=== PATIENT | female | born 1925 | race Caucasian/White ===

== ENCOUNTER 2016-08-17 10:18 | Inpatient (IN) | payer MEDICARE ==
[~2016-08-17] VITALS: Ht 165.1 cm; Wt 64.0 kg
[2016-08-17] MEDS ORDERED: IV NORMAL SALINE 1000ML BAG 1,000 ML IV ONE (10:45)
[2016-08-17 11:04] LABS: BASO % 0 % (0-3); EOS % 0 % (0-3); HEMATOCRIT 45.1 % (36.0-47.0); HEMOGLOBIN 15.3 g/dL (12.0-15.5); LYMPH # 1.1 x10^3/uL (1.0-4.8); LYMPH % 11 % (24-48); MEAN CORPUSCULAR HEMOGLOBIN 30 pg (25-35); MEAN CORPUSCULAR HGB CONC 34 g/dL (31-37); MEAN CORPUSCULAR VOLUME 88 fL (79-100); MONO % 9 % (0-9); NEUT % 80 % (31-73); PLATELET COUNT 373 x10^3/uL (140-400); RED BLOOD COUNT 5.15 x10^6/uL (3.50-5.40); RED CELL DISTRIBUTION WIDTH 13.4 % (11.5-14.5); WHITE BLOOD COUNT 10.8 x10^3/uL (4.0-11.0)
[2016-08-17 11:08] LABS: BILIRUBIN,URINE SMALL (NEG); GLUCOSE,URINE NEGATIVE (NEG); NITRITE,URINE NEGATIVE (NEG); PH,URINE 6.5; PROTEIN,URINE 30 mg/dL (NEG-TRACE)
[2016-08-17] MEDS ORDERED: CHOL500016 PO (11:09)
[2016-08-17] MEDS ORDERED: LEVO100T5 PO (11:09)
[2016-08-17] MEDS ORDERED: SIMV40TA3 PO (11:09)
[2016-08-17] MEDS ORDERED: ASPI-482 PO (11:09)
[2016-08-17] MEDS ORDERED: METO25TA4 PO (11:09)
--- NOTE | 2016-08-17 11:12 | RAD ---
Indication generalized weakness. Protocol study. A single view of the chest was obtained and is compared to an examination March 28, 2011. There are background changes compatible with emphysema and/or fibrosis. Heart size is normal. There is no gross congestive heart failure. There are occasional calcified granulomas. Vascular stent is noted in the upper mediastinum. An acute finding in the chest is not seen. IMPRESSION: No acute finding in the chest
[2016-08-17 11:19] LABS: INR 1.1 (0.8-1.1); PROTHROMBIN TIME PATIENT 13.1 SEC (11.7-14.0)
[2016-08-17 11:24] LABS: CALCIUM 10.2 mg/dL (8.5-10.1); GFR 52.3; POTASSIUM 4.4 mmol/L (3.5-5.1)
--- NOTE | 2016-08-17 11:27 | RAD ---
Indication weakness. Noncontrast images of the head were obtained. Comparison is made to an examination 10/18/2011. The calvarium appears unremarkable. The visualized paranasal sinuses appear unremarkable. There is no subdural or epidural hematoma. There is some underlying atrophy compatible with the patient's age. There is no mass or midline shift. No hemorrhage is seen. A significant change compared to the previous exam is not seen. IMPRESSION: No acute intracranial finding PQRS Compliance Statement: One or more of the following individualized dose reduction techniques were utilized for this examination: 1. Automated exposure control 2. Adjustment of the mA and/or kV according to patient size 3. Use of iterative reconstruction technique
[2016-08-17 11:30] LABS: BACTERIA,URINE 0 /HPF (0-FEW); RBC,URINE OCC /HPF (0-2); SQUAMOUS EPITHELIAL CELL,UR FEW /LPF
[2016-08-17 11:30] LABS: ALBUMIN 3.6 g/dL (3.4-5.0); ALBUMIN/GLOBULIN RATIO 0.9 (1.0-1.7); MAGNESIUM 2.1 mg/dL (1.8-2.4); TOTAL BILIRUBIN 0.8 mg/dL (0.2-1.0); TOTAL PROTEIN 7.7 g/dL (6.4-8.2)
[2016-08-17 11:32] LABS: BARBITURATES NEG (NEG); BENZODIAZEPINES NEG (NEG); CANNABINOIDS NEG (NEG); COCAINE NEG (NEG); METHADONE NEG (NEG); OPIATES NEG (NEG); PHENCYCLIDINE NEG (NEG)
--- NOTE | 2016-08-17 11:36 | EKG ---
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
[2016-08-17 11:38] LABS: CKMB MASS 9.4 ng/mL (0.0-3.6)
[2016-08-17] MEDS ORDERED: IOHEXOL 300 MG/ML 75 ML VIAL IV ONE (13:15)
--- NOTE | 2016-08-17 14:49 | RAD ---
CT pulmonary angiogram with contrast History: Elevated d-dimer, weakness. Comparison: None. Technique: Helical CT angiogram of the chest with attention to the pulmonary arteries was performed after the administration of intravenous contrast, 60 mL Omnipaque 300. Axial 2-D reconstructions were obtained. Coronal 3-D MIPS were also obtained. One or more of the following individualized dose reduction techniques were utilized for the study: Automated exposure control Adjustment of mA and/or kV according to patient's size Use of iterative reconstruction technique. Findings: Pulmonary arteries are adequately opacified. There is motion artifact. There is no evidence of proximal segmental or larger pulmonary embolism. Focus of atelectasis is seen in the right lower lobe. Old granulomatous disease of the chest is noted. No pneumothorax or pleural effusion is seen. Trachea and mainstem bronchi appear patent. Aortic atherosclerosis is noted. Coronary artery calcification are seen. No pericardial thickening is identified. No cardiac chamber enlargement is seen. Images of the upper abdomen demonstrate 1.5 cm low-density lesion involving the left hepatic lobe, may be cyst. Impression: 1. No proximal segmental or larger pulmonary embolism identified. 2. No acute abnormality identified in the chest.
[2016-08-17] MEDS ORDERED: ONDANSETRON PF 4 MG/2 ML VIAL. IV PRN ×2 (15:15→16:39)
--- NOTE | 2016-08-17 16:30 | PHYS DOC ---
Past Medical History Past Medical History: High Cholesterol, Hypothyroid Past Surgical History: Other Additional Past Surgical Histo: back surgery, stent placed in carotid Alcohol Use: None Drug Use: None Adult General Chief Complaint Chief Complaint: WEAKNESS/GENERALIZED HPI HPI Patient is a 89 year old female with history of hypothyroidism and high cholesterol who presents today with increased weakness. Patient is in the ED by herself. Per nursing inflammation patient was signed by the family who stay with her. They state patient was found on the floor sitting down this morning. This states she appeared increasingly confused. This states she appeared weaker than normal. Patient is alert and oriented to self only. Family is not present. Review of Systems Review of Systems Constitutional: Generalized weakness Eyes: Denies change in visual acuity, redness, or eye pain [] HENT: Denies nasal congestion or sore throat [] Respiratory: Denies cough or shortness of breath [] Cardiovascular: No additional information not addressed in HPI [] GI: Denies abdominal pain, nausea, vomiting, bloody stools or diarrhea [] : Denies dysuria or hematuria [] Musculoskeletal: Denies back pain or joint pain [] Integument: Denies rash or skin lesions [] Neurologic: Increase confusion Endocrine: Denies polyuria or polydipsia [] Current Medications Current Medications Current Medications Medications (Trade) Dose Ordered Sig/Gaurang Start Time Stop Time Status Last Admin Dose Admin Iohexol (Omnipaque 300 Mg/ml) 60 ml 1X ONCE 08/17/16 13:15 08/17/16 13:16 DC 08/17/16 14:31 60 ML Sodium Chloride 1,000 ml @ 1,000 mls/hr 1X ONCE 08/17/16 10:45 08/17/16 11:44 DC 08/17/16 11:17 1,000 MLS/HR Allergies Allergies Physical Exam Physical Exam Constitutional: Well developed, well nourished, no acute distress, non-toxic appearance. [] HENT: Normocephalic, atraumatic, bilateral external ears normal, oropharynx moist, no oral exudates, nose normal. [] Eyes: PERRLA, EOMI, conjunctiva normal, no discharge. [] Neck: Normal range of motion, no tenderness, supple, no stridor. [] Cardiovascular:Heart rate regular rhythm, no murmur [] Lungs & Thorax: Bilateral breath sounds clear to auscultation [] Abdomen: Bowel sounds normal, soft, no tenderness, no masses, no pulsatile masses. [] Skin: Warm, dry, no erythema, no rash. [] Back: No tenderness, no CVA tenderness. [] Extremities: No tenderness, no cyanosis, no clubbing, ROM intact, no edema. [] Neurologic: Alert and oriented X 1, normal motor function, normal sensory function, no focal deficits noted. [] Psychologic: Affect normal, judgement normal, mood normal. [] Current Patient Data Vital Signs Vital Signs Date Time Temp Pulse Resp B/P (MAP) Pulse Ox O2 Delivery O2 Flow Rate FiO2 08/17/16 13:36 101 20 158/84 (108) 93 Room Air 08/17/16 10:25 99.1 99.1 Lab Values Laboratory Tests Test 08/17/16 10:30 08/17/16 10:40 Urine Collection Type U cath Urine Color Yellow Urine Clarity Clear Urine pH 6.5 Urine Specific [place] 1.020 Urine Protein 30 mg/dL (NEG-TRACE) Urine Glucose (UA) Negative mg/dL (NEG) Urine Ketones (Stick) 15 mg/dL (NEG) Urine Blood Negative (NEG) Urine Nitrite Negative (NEG) Urine Bilirubin Small (NEG) Urine Urobilinogen Dipstick 1.0 mg/dL (0.2 mg/dL) Urine Leukocyte Esterase Negative (NEG) Urine RBC Occ /HPF (0-2) Urine WBC 1-4 /HPF (0-4) Urine Squamous Epithelial Cells Few /LPF Urine Bacteria 0 /HPF (0-FEW) Urine Hyaline Casts Few /HPF Urine Mucus Mod /LPF Urine Opiates Screen Neg (NEG) Urine Methadone Screen Neg (NEG) Urine Barbiturates Neg (NEG) Urine Phencyclidine Screen Neg (NEG) Urine Amphetamine/Methamphetamine Neg (NEG) Urine Benzodiazepines Screen Neg (NEG) Urine Cocaine Screen Neg (NEG) Urine Cannabinoids Screen Neg (NEG) Urine Ethyl Alcohol Neg (NEG) White Blood Count 10.8 x10^3/uL (4.0-11.0) Red Blood Count 5.15 x10^6/uL (3.50-5.40) Hemoglobin 15.3 g/dL (12.0-15.5) Hematocrit 45.1 % (36.0-47.0) Mean Corpuscular Volume 88 fL (79-100) Mean Corpuscular Hemoglobin 30 pg (25-35) Mean Corpuscular Hemoglobin Concent 34 g/dL (31-37) Red Cell Distribution Width 13.4 % (11.5-14.5) Platelet Count 373 x10^3/uL (140-400) Neutrophils (%) (Auto) 80 % (31-73) H Lymphocytes (%) (Auto) 11 % (24-48) L Monocytes (%) (Auto) 9 % (0-9) Eosinophils (%) (Auto) 0 % (0-3) Basophils (%) (Auto) 0 % (0-3) Neutrophils # (Auto) 8.6 x10^3uL (1.8-7.7) H Lymphocytes # (Auto) 1.1 x10^3/uL (1.0-4.8) Monocytes # (Auto) 1.0 x10^3/uL (0.0-1.1) Eosinophils # (Auto) 0.0 x10^3/uL (0.0-0.7) Basophils # (Auto) 0.0 x10^3/uL (0.0-0.2) Prothrombin Time 13.1 SEC (11.7-14.0) Prothrombin Time INR 1.1 (0.8-1.1) D-Dimer (Christal) 2.14 ug/mlFEU (0.00-0.50) H Sodium Level 141 mmol/L (136-145) Potassium Level 4.4 mmol/L (3.5-5.1) Chloride Level 105 mmol/L (98-107) Carbon Dioxide Level 31 mmol/L (21-32) Anion Gap 5 (6-14) L Blood Urea Nitrogen 17 mg/dL (7-20) Creatinine 1.0 mg/dL (0.6-1.0) Estimated GFR (Cockcroft-Gault) 52.3 BUN/Creatinine Ratio 17 (6-20) Glucose Level 112 mg/dL (70-99) H Lactic Acid Level 2.1 mmol/L (0.4-2.0) H Calcium Level 10.2 mg/dL (8.5-10.1) H Magnesium Level 2.1 mg/dL (1.8-2.4) Total Bilirubin 0.8 mg/dL (0.2-1.0) Aspartate Amino Transferase (AST) 35 U/L (15-37) Alanine Aminotransferase (ALT) 21 U/L (14-59) Alkaline Phosphatase 123 U/L (46-116) H Creatine Kinase 651 U/L (26-192) H Creatine Kinase MB (Mass) 9.4 ng/mL (0.0-3.6) H Creatine Kinase MB Relative Index 1.4 % (0-4) Troponin I Quantitative 0.023 ng/mL (0.000-0.055) ZH-Mag-C-Type Natriuretic Peptide 1210 pg/mL (0-449) H Total Protein 7.7 g/dL (6.4-8.2) Albumin 3.6 g/dL (3.4-5.0) Albumin/Globulin Ratio 0.9 (1.0-1.7) L Thyroid Stimulating Hormone (TSH) 0.858 uIU/mL (0.358-3.74) Laboratory Tests 08/17/16 10:40 Laboratory Tests 08/17/16 10:40 EKG EKG [] Radiology/Procedures Radiology/Procedures [] Course & Med Decision Making Course & Med Decision Making Pertinent Labs and Imaging studies reviewed. (See chart for details) This is a 89-year-old female patient who presents to the ED with increased weakness and increased confusion. She is in the ED by herself. Family is not present. Per nursing information patient was sent to the ED by the family who stated she was found on the floor sitting down. They state she appeared more confused than normal as well as weaker than normal. Patient is alert and oriented to self. She actually states she sat herself on the floor for unknown reason. CBC with no acute findings, CMP with calcium of 10.2, lactic 2.1, d-dimer was 2.14. Urine analysis was negative for infection. Chest x-ray, CT of the head, CTA chest was negative for any acute findings. Spoke with Dr. Cosme was accepted patient for admission. Dragon Disclaimer Dragon Disclaimer This electronic medical record was generated, in whole or in part, using a voice recognition dictation system. Departure Departure Impression: Primary Impression: Generalized weakness Additional Impression: Confusion Disposition: ADMITTED INPATIENT Admitting Physician: Abigail Kelly Condition: STABLE Referrals: APRIL NIELSEN Jr, MD (PCP) Problem Qualifiers STEFANIE GONZALEZ [employer]ER August 17, 2016 16:30
[2016-08-17] MEDS ORDERED: IV 1/2 NORMAL SALINE 1,000 ML IV ONE (16:45)
[2016-08-17] MEDS ORDERED: LABETALOL 20 MG/4 ML DISP.SYRIN. IVP PRN (16:45)
--- NOTE | 2016-08-17 16:52 | PDOC1 ---
History and Physical Date of Admission Date of Admission DATE: 08/17/16 TIME: 16:43 Identification/Chief Complaint Chief Complaint more confused than usual Problems: Source Source: Caregiver, Chart review, Patient History of Present Illness History of Present Illness 89 y.o female who lives with son at home, has assistive devices at home but does not use them (bec she doesnt want to), she holds on to church, furniture etc to get by, brought by concerned son and dtr bec of more confusion than baseline, She otherwise usually can feed herself (they chop food for her). NOw seems more wake but she thinks her dtr was someone else (unusual for pt), not oriented to yr or place (unusual to pt), Imaging CT head CXR neg, blood work unimpressive except for mild hypercalcemia 10.2, lactate 2.3, BNP 1200, TSH normal, WBC 1o, Hgb 15. Family knows likely this is dementia, asks for a "test to dx dementia" heavy education done and they are realistic and understand. 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 Past Medical History Cardiovascular: HTN, Hyperlipidemia Endocrine: Hypothyroidism Past Surgical History Past Surgical History: No pertinent history Family History Family History: No Significant, Hypertension Social History Smoke: No ALCOHOL: none Drugs: None Current Problem List Problem List Problems Medical Problems: (1) Generalized weakness Status: Acute Problems: Current Medications Current Medications Current Medications Sodium Chloride 1,000 ml @ 1,000 mls/hr 1X ONCE IV Last administered on t 11:17; Start 08/17/16 at 10:45; Stop 08/17/16 at 11:44; Status DC Iohexol (Omnipaque 300 Mg/ml) 60 ml 1X ONCE IV Last administered on 08/17/16t 14:31; Start 08/17/16 at 13:15; Stop 08/17/16 at 13:16; Status DC Ondansetron HCl (Zofran) 4 mg PRN Q8HRS PRN IV NAUSEA/VOMITING; Start 08/17/16 at 15:15; Stop 08/17/16 at 16:41; Status DC Ondansetron HCl (Zofran) 4 mg PRN Q6HRS PRN IV NAUSEA/VOMITING; Start 08/17/16 at 16:39; Stop 08/18/16 at 16:38; Status UNV Sodium Chloride 1,000 ml @ 75 mls/hr 1X ONCE IV ; Start 08/17/16 at 16:45; Stop 08/18/16 at 06:04; Status UNV Labetalol HCl (Normodyne) 10 mg PRN Q2HR PRN IVP HYPERTENSION, SEE COMMENTS; Start 08/17/16 at 16:45; Status UNV Aspirin (Ecotrin) 81 mg DAILY PO ; Start 08/18/16 at 09:00; Status UNV Levothyroxine Sodium (Synthroid) 100 mcg DAILY PO ; Start 08/18/16 at 09:00; Status UNV Metoprolol Tartrate (Lopressor) 25 mg BID PO ; Start 08/17/16 at 21:00; Status UNV Simvastatin (Zocor) 40 mg QHS PO ; Start 08/17/16 at 21:00; Status UNV Non-Formulary Medication 1 tab DAILY PO ; Start 08/18/16 at 09:00; Status UNV Active Scripts Active Reported Vitamin D3 (Cholecalciferol (Vitamin D3)) 5,000 Unit Tablet 1 Tab PO DAILY Aspir 81 (Aspirin) 81 Mg Tablet.dr 1 Tab PO DAILY Levothyroxine Sodium 100 Mcg Tablet 1 Tab PO DAILY Metoprolol Tartrate 25 Mg Tablet 1 Tab PO BID Simvastatin 40 Mg Tablet 1 Tab PO QHS Allergies Allergies: Coded Allergies: egg (Verified Allergy, Intermediate, Nausea and Vomiting, 08/17/16) ROS Review of System unable to determine- has dementia Physical Exam General: No acute distress, Other (smiles, orieted only to self) HEENT: Atraumatic, PERRLA, EOMI Lungs: Clear to auscultation, Normal air movement Heart: S1S2, RRR, no thrills, no rubs, no gallops Cardiovascular: S2 Breasts: Normal Abdomen: Normal bowel sounds, Soft, No tenderness, No hepatosplenomegaly, No masses Rectal Exam: not examined PELVIC: Nml ext genitalia Extremities: No clubbing, No cyanosis, No edema, Normal pulses, No tenderness/ swelling Skin: No rashes, No breakdown, No significant lesion, Other (senile skin turgor ) Vitals Vitals Vital Signs Date Time Temp Pulse Resp B/P (MAP) Pulse Ox O2 Delivery O2 Flow Rate FiO2 08/17/16 15:43 Room Air 08/17/16 14:37 107 20 159/82 (107) 94 08/17/16 10:25 99.1 99.1 Labs Labs Laboratory Tests Test 08/17/16 10:30 08/17/16 10:40 Urine Collection Type U cath Urine Color Yellow Urine Clarity Clear Urine pH 6.5 Urine Specific [place] 1.020 Urine Protein 30 mg/dL (NEG-TRACE) Urine Glucose (UA) Negative mg/dL (NEG) Urine Ketones (Stick) 15 mg/dL (NEG) Urine Blood Negative (NEG) Urine Nitrite Negative (NEG) Urine Bilirubin Small (NEG) Urine Urobilinogen Dipstick 1.0 mg/dL (0.2 mg/dL) Urine Leukocyte Esterase Negative (NEG) Urine RBC Occ /HPF (0-2) Urine WBC 1-4 /HPF (0-4) Urine Squamous Epithelial Cells Few /LPF Urine Bacteria 0 /HPF (0-FEW) Urine Hyaline Casts Few /HPF Urine Mucus Mod /LPF Urine Opiates Screen Neg (NEG) Urine Methadone Screen Neg (NEG) Urine Barbiturates Neg (NEG) Urine Phencyclidine Screen Neg (NEG) Urine Amphetamine/Methamphetamine Neg (NEG) Urine Benzodiazepines Screen Neg (NEG) Urine Cocaine Screen Neg (NEG) Urine Cannabinoids Screen Neg (NEG) Urine Ethyl Alcohol Neg (NEG) White Blood Count 10.8 x10^3/uL (4.0-11.0) Red Blood Count 5.15 x10^6/uL (3.50-5.40) Hemoglobin 15.3 g/dL (12.0-15.5) Hematocrit 45.1 % (36.0-47.0) Mean Corpuscular Volume 88 fL (79-100) Mean Corpuscular Hemoglobin 30 pg (25-35) Mean Corpuscular Hemoglobin Concent 34 g/dL (31-37) Red Cell Distribution Width 13.4 % (11.5-14.5) Platelet Count 373 x10^3/uL (140-400) Neutrophils (%) (Auto) 80 % (31-73) Lymphocytes (%) (Auto) 11 % (24-48) Monocytes (%) (Auto) 9 % (0-9) Eosinophils (%) (Auto) 0 % (0-3) Basophils (%) (Auto) 0 % (0-3) Neutrophils # (Auto) 8.6 x10^3uL (1.8-7.7) Lymphocytes # (Auto) 1.1 x10^3/uL (1.0-4.8) Monocytes # (Auto) 1.0 x10^3/uL (0.0-1.1) Eosinophils # (Auto) 0.0 x10^3/uL (0.0-0.7) Basophils # (Auto) 0.0 x10^3/uL (0.0-0.2) Prothrombin Time 13.1 SEC (11.7-14.0) Prothromb Time International Ratio 1.1 (0.8-1.1) D-Dimer (Christal) 2.14 ug/mlFEU (0.00-0.50) Sodium Level 141 mmol/L (136-145) Potassium Level 4.4 mmol/L (3.5-5.1) Chloride Level 105 mmol/L (98-107) Carbon Dioxide Level 31 mmol/L (21-32) Anion Gap 5 (6-14) Blood Urea Nitrogen 17 mg/dL (7-20) Creatinine 1.0 mg/dL (0.6-1.0) Estimated GFR (Cockcroft-Gault) 52.3 BUN/Creatinine Ratio 17 (6-20) Glucose Level 112 mg/dL (70-99) Lactic Acid Level 2.1 mmol/L (0.4-2.0) Calcium Level 10.2 mg/dL (8.5-10.1) Magnesium Level 2.1 mg/dL (1.8-2.4) Total Bilirubin 0.8 mg/dL (0.2-1.0) Aspartate Amino Transf (AST/SGOT) 35 U/L (15-37) Alanine Aminotransferase (ALT/SGPT) 21 U/L (14-59) Alkaline Phosphatase 123 U/L (46-116) Creatine Kinase 651 U/L (26-192) Creatine Kinase MB (Mass) 9.4 ng/mL (0.0-3.6) Creatine Kinase MB Relative Index 1.4 % (0-4) Troponin I Quantitative 0.023 ng/mL (0.000-0.055) BK-Agf-U-Type Natriuretic Peptide 1210 pg/mL (0-449) Total Protein 7.7 g/dL (6.4-8.2) Albumin 3.6 g/dL (3.4-5.0) Albumin/Globulin Ratio 0.9 (1.0-1.7) Thyroid Stimulating Hormone (TSH) 0.858 uIU/mL (0.358-3.74) Laboratory Tests Test 08/17/16 10:30 08/17/16 10:40 Urine Collection Type U cath Urine Color Yellow Urine Clarity Clear Urine pH 6.5 Urine Specific [place] 1.020 Urine Protein 30 mg/dL (NEG-TRACE) Urine Glucose (UA) Negative mg/dL (NEG) Urine Ketones (Stick) 15 mg/dL (NEG) Urine Blood Negative (NEG) Urine Nitrite Negative (NEG) Urine Bilirubin Small (NEG) Urine Urobilinogen Dipstick 1.0 mg/dL (0.2 mg/dL) Urine Leukocyte Esterase Negative (NEG) Urine RBC Occ /HPF (0-2) Urine WBC 1-4 /HPF (0-4) Urine Squamous Epithelial Cells Few /LPF Urine Bacteria 0 /HPF (0-FEW) Urine Hyaline Casts Few /HPF Urine Mucus Mod /LPF Urine Opiates Screen Neg (NEG) Urine Methadone Screen Neg (NEG) Urine Barbiturates Neg (NEG) Urine Phencyclidine Screen Neg (NEG) Urine Amphetamine/Methamphetamine Neg (NEG) Urine Benzodiazepines Screen Neg (NEG) Urine Cocaine Screen Neg (NEG) Urine Cannabinoids Screen Neg (NEG) Urine Ethyl Alcohol Neg (NEG) White Blood Count 10.8 x10^3/uL (4.0-11.0) Red Blood Count 5.15 x10^6/uL (3.50-5.40) Hemoglobin 15.3 g/dL (12.0-15.5) Hematocrit 45.1 % (36.0-47.0) Mean Corpuscular Volume 88 fL (79-100) Mean Corpuscular Hemoglobin 30 pg (25-35) Mean Corpuscular Hemoglobin Concent 34 g/dL (31-37) Red Cell Distribution Width 13.4 % (11.5-14.5) Platelet Count 373 x10^3/uL (140-400) Neutrophils (%) (Auto) 80 % (31-73) Lymphocytes (%) (Auto) 11 % (24-48) Monocytes (%) (Auto) 9 % (0-9) Eosinophils (%) (Auto) 0 % (0-3) Basophils (%) (Auto) 0 % (0-3) Neutrophils # (Auto) 8.6 x10^3uL (1.8-7.7) Lymphocytes # (Auto) 1.1 x10^3/uL (1.0-4.8) Monocytes # (Auto) 1.0 x10^3/uL (0.0-1.1) Eosinophils # (Auto) 0.0 x10^3/uL (0.0-0.7) Basophils # (Auto) 0.0 x10^3/uL (0.0-0.2) Prothrombin Time 13.1 SEC (11.7-14.0) Prothromb Time International Ratio 1.1 (0.8-1.1) D-Dimer (Christal) 2.14 ug/mlFEU (0.00-0.50) Sodium Level 141 mmol/L (136-145) Potassium Level 4.4 mmol/L (3.5-5.1) Chloride Level 105 mmol/L (98-107) Carbon Dioxide Level 31 mmol/L (21-32) Anion Gap 5 (6-14) Blood Urea Nitrogen 17 mg/dL (7-20) Creatinine 1.0 mg/dL (0.6-1.0) Estimated GFR (Cockcroft-Gault) 52.3 BUN/Creatinine Ratio 17 (6-20) Glucose Level 112 mg/dL (70-99) Lactic Acid Level 2.1 mmol/L (0.4-2.0) Calcium Level 10.2 mg/dL (8.5-10.1) Magnesium Level 2.1 mg/dL (1.8-2.4) Total Bilirubin 0.8 mg/dL (0.2-1.0) Aspartate Amino Transf (AST/SGOT) 35 U/L (15-37) Alanine Aminotransferase (ALT/SGPT) 21 U/L (14-59) Alkaline Phosphatase 123 U/L (46-116) Creatine Kinase 651 U/L (26-192) Creatine Kinase MB (Mass) 9.4 ng/mL (0.0-3.6) Creatine Kinase MB Relative Index 1.4 % (0-4) Troponin I Quantitative 0.023 ng/mL (0.000-0.055) YD-Yxw-S-Type Natriuretic Peptide 1210 pg/mL (0-449) Total Protein 7.7 g/dL (6.4-8.2) Albumin 3.6 g/dL (3.4-5.0) Albumin/Globulin Ratio 0.9 (1.0-1.7) Thyroid Stimulating Hormone (TSH) 0.858 uIU/mL (0.358-3.74) VTE Prophylaxis Ordered VTE Prophylaxis Devices: Yes VTE Pharmacological Prophylaxi: Yes Assessment/Plan Assessment/Plan 1. Acute transient encephalopathy, likely sec to dementia undiagnosed 2. Hypothyroidism with TSH at goal 3. Dyslipidemia on statin 4. HTN, on BB controlled 5. MIld hypercalcemia s/p IVF bolus at ER 6. Elevated BNP 7. Dysphagia - on chopped diet at home 8. Elevated lactate PLAn: Admit REsume home meds except statin - i dont see the point controlling lipids in an 89 y.o (NO hx of stroke) PT/OT Dysphagia 3 diet [employer] [facility] - family wants snu Mild IVF in this elderly to help correct hypercalcemia (has been poor PO lately) HIgh fall risk DVT prophy with lovenox Rpt lactate carlin MAy chesk ESR, vit B12, dementia is a dx of exclusion MAy consult neuro to further educate sterling peterson re dementia SO far full code on chart, need to address with family Seen at ER ARNULFO POOLE MD August 17, 2016 16:51
[2016-08-17 17:45] VITALS: BP 145/99
[2016-08-17] MEDS: ENOXAPARIN 40 MG/0.4 ML SYRINGE. SQ SCH (18:16)
[2016-08-17 19:37] VITALS: BP 108/66
[2016-08-17] MEDS: METOPROLOL TART IMMED RELEASE 25 MG TABLET. PO SCH (21:00)
[2016-08-17] MEDS ORDERED: SIMVASTATIN 40 MG TABLET. PO SCH (21:00)
[2016-08-17 23:00] VITALS: BP 120/59
[2016-08-18 03:00] VITALS: BP 109/80
[2016-08-18 03:20] LABS: BASO % 1 % (0-3); EOS % 3 % (0-3); HEMATOCRIT 37.7 % (36.0-47.0); HEMOGLOBIN 12.6 g/dL (12.0-15.5); LYMPH # 1.3 x10^3/uL (1.0-4.8); LYMPH % 19 % (24-48); MEAN CORPUSCULAR HEMOGLOBIN 30 pg (25-35); MEAN CORPUSCULAR HGB CONC 33 g/dL (31-37); MEAN CORPUSCULAR VOLUME 89 fL (79-100); MONO % 9 % (0-9); NEUT % 68 % (31-73); PLATELET COUNT 268 x10^3/uL (140-400); RED BLOOD COUNT 4.22 x10^6/uL (3.50-5.40); RED CELL DISTRIBUTION WIDTH 13.4 % (11.5-14.5); WHITE BLOOD COUNT 6.5 x10^3/uL (4.0-11.0)
[2016-08-18 03:34] LABS: ALBUMIN 2.5 g/dL (3.4-5.0); ALBUMIN/GLOBULIN RATIO 0.9 (1.0-1.7); CALCIUM 8.6 mg/dL (8.5-10.1); CREATININE 0.8 mg/dL (0.6-1.0); GFR 67.7; POTASSIUM 3.9 mmol/L (3.5-5.1); TOTAL BILIRUBIN 0.5 mg/dL (0.2-1.0); TOTAL PROTEIN 5.2 g/dL (6.4-8.2)
[2016-08-18] MEDS: LEVOTHYROXINE 100 MCG TABLET PO SCH (06:12)
[2016-08-18 07:25] VITALS: BP 138/60
[2016-08-18] MEDS: METOPROLOL TART IMMED RELEASE 25 MG TABLET. PO SCH ×2 (09:05→20:59)
[2016-08-18] MEDS: ASPIRIN ENTERIC COATED 81 MG TABLET.DR. PO SCH (09:05)
[2016-08-18] MEDS: CHOLECALCIFEROL (VITAMIN D3) 5,000 UNIT CAPSULE PO SCH (09:05)
[2016-08-18 10:37] VITALS: BP 125/60
[2016-08-18] MEDS ORDERED: DOCUSATE SODIUM 100 MG CAPSULE. PO PRN (11:45)
[2016-08-18] MEDS ORDERED: ONDANSETRON PF 4 MG/2 ML VIAL. IV PRN (11:45)
[2016-08-18] MEDS ORDERED: ACETAMINOPHEN 325 MG TABLET. PO PRN (11:45)
[2016-08-18] MEDS ORDERED: hydrALAZINE 20 MG/ML VIAL. IVP PRN (11:45)
[2016-08-18] MEDS ORDERED: traMADol 50 MG TABLET PO PRN (11:45)
[2016-08-18] MEDS ORDERED: MORPHINE SULFATE 2 MG/ML DISP.SYRIN. IV PRN (11:45)
[2016-08-18] MEDS: CYANOCOBALAMIN (VITAMIN B-12) 1,000 MCG/ML VIAL IM SCH (12:22)
--- NOTE | 2016-08-18 12:54 | RAD ---
Indication swelling. Grayscale color Doppler and spectral imaging was performed. The examination was targeted to the major arteries of the lower extremities. On the right there is a biphasic waveform associated with the common femoral artery indicative of a component of inlet disease. A similar waveform is seen in the deep femoral. Biphasic to triphasic waveforms are seen throughout the course of the superficial femoral artery. This transitions to a monophasic waveform in the popliteal artery indicative of a component of disease at the SFA popliteal junction. The anterior tibial artery has a monophasic waveform. The posterior tibial artery also is monophasic. The peroneal artery is monophasic and the dorsal pedal artery is monophasic. On the left there is a biphasic waveform associated with the common femoral artery with a similar waveform in the deep femoral. Biphasic to triphasic waveforms are seen associated with the superficial femoral artery. Similar waveform is seen in the popliteal artery. The anterior tibial artery has a biphasic waveform. The posterior tibial artery has monophasic as is the peroneal. The dorsal pedal artery has a dampened monophasic waveform. 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 High-grade arterial stenosis on the right is not seen although there is an additional component of disease associated with the calf vessels. On the left there is likely some narrowing at the SFA popliteal junction with additional disease involving the calf vessels particularly the dorsal pedal artery
--- NOTE | 2016-08-18 13:02 | PDOC ---
PROGRESS NOTES Chief Complaint Chief Complaint 1. Acute transient encephalopathy, likely sec to dementia undiagnosed 2. Hypothyroidism with TSH at goal 3. Dyslipidemia on statin 4. HTN, on BB controlled 5. MIld hypercalcemia s/p IVF bolus at ER 6. Elevated BNP 7. Dysphagia - on chopped diet at home 8. Elevated lactate 9. vitb12 deficiency 10. mild malnutrition 11. urinary retention PLAn: fu with neuro, uro dysphagia 3 diet with swallow eval vitb12 IMX1 , po when dc PTOT SW for snf cont home meds keep esteban for now dvt ppx discussed with family History of Present Illness History of Present Illness obviously mild to moderate dementia, knows it is in hosp, but cannot tell me the name, year, month, day, home address pt denies dementia pt feels ok urinary retention overnight Vitals Vitals Vital Signs Date Time Temp Pulse Resp B/P (MAP) Pulse Ox O2 Delivery O2 Flow Rate FiO2 08/18/16 10:37 98.5 71 16 125/60 (81) 95 Room Air 98.5 08/17/16 20:00 93.0 Physical Exam Physical Exam aaox1-2, to person, place, not name of hosp General: Alert, Cooperative, No acute distress, Other (smiles, orieted only to self) Heart: Regular rate, Normal S1 Lungs: Clear Abdomen: Normal bowel sounds, Soft, No tenderness, No hepatosplenomegaly, No masses Extremities: No clubbing, No cyanosis, Normal pulses, No tenderness/swelling, Other (bl feet mild edema) Skin: No rashes, No breakdown, No significant lesion, Other (senile skin turgor ) Labs LABS Laboratory Tests Test 08/17/16 16:50 08/18/16 03:10 Lactic Acid Level 1.7 mmol/L (0.4-2.0) White Blood Count 6.5 x10^3/uL (4.0-11.0) Red Blood Count 4.22 x10^6/uL (3.50-5.40) Hemoglobin 12.6 g/dL (12.0-15.5) Hematocrit 37.7 % (36.0-47.0) Mean Corpuscular Volume 89 fL (79-100) Mean Corpuscular Hemoglobin 30 pg (25-35) Mean Corpuscular Hemoglobin Concent 33 g/dL (31-37) Red Cell Distribution Width 13.4 % (11.5-14.5) Platelet Count 268 x10^3/uL (140-400) Neutrophils (%) (Auto) 68 % (31-73) Lymphocytes (%) (Auto) 19 % (24-48) Monocytes (%) (Auto) 9 % (0-9) Eosinophils (%) (Auto) 3 % (0-3) Basophils (%) (Auto) 1 % (0-3) Neutrophils # (Auto) 4.5 x10^3uL (1.8-7.7) Lymphocytes # (Auto) 1.3 x10^3/uL (1.0-4.8) Monocytes # (Auto) 0.6 x10^3/uL (0.0-1.1) Eosinophils # (Auto) 0.2 x10^3/uL (0.0-0.7) Basophils # (Auto) 0.0 x10^3/uL (0.0-0.2) Erythrocyte Sedimentation Rate 8 (0-25) Sodium Level 145 mmol/L (136-145) Potassium Level 3.9 mmol/L (3.5-5.1) Chloride Level 108 mmol/L (98-107) Carbon Dioxide Level 27 mmol/L (21-32) Anion Gap 10 (6-14) Blood Urea Nitrogen 16 mg/dL (7-20) Creatinine 0.8 mg/dL (0.6-1.0) Estimated GFR (Cockcroft-Gault) 67.7 BUN/Creatinine Ratio 20 (6-20) Glucose Level 86 mg/dL (70-99) Calcium Level 8.6 mg/dL (8.5-10.1) Total Bilirubin 0.5 mg/dL (0.2-1.0) Aspartate Amino Transf (AST/SGOT) 29 U/L (15-37) Alanine Aminotransferase (ALT/SGPT) 17 U/L (14-59) Alkaline Phosphatase 93 U/L (46-116) Troponin I Quantitative 0.043 ng/mL (0.000-0.055) Total Protein 5.2 g/dL (6.4-8.2) Albumin 2.5 g/dL (3.4-5.0) Albumin/Globulin Ratio 0.9 (1.0-1.7) Vitamin B12 Level 195 pg/mL (247-911) Review of Systems Review of Systems no fever, chills, sob or chest pain Assessment and Plan Assessmemt and Plan Problems Medical Problems: (1) Confusion Status: Acute (2) Generalized weakness Status: Acute Problems: Comment Review of Relevant I have reviewed the following items isabella (where applicable) has been applied. Labs Laboratory Tests Test 08/17/16 10:30 08/17/16 10:40 08/17/16 16:50 08/18/16 03:10 Urine Collection Type U cath Urine Color Yellow Urine Clarity Clear Urine pH 6.5 Urine Specific [place] 1.020 Urine Protein 30 mg/dL (NEG-TRACE) Urine Glucose (UA) Negative mg/dL (NEG) Urine Ketones (Stick) 15 mg/dL (NEG) Urine Blood Negative (NEG) Urine Nitrite Negative (NEG) Urine Bilirubin Small (NEG) Urine Urobilinogen Dipstick 1.0 mg/dL (0.2 mg/dL) Urine Leukocyte Esterase Negative (NEG) Urine RBC Occ /HPF (0-2) Urine WBC 1-4 /HPF (0-4) Urine Squamous Epithelial Cells Few /LPF Urine Bacteria 0 /HPF (0-FEW) Urine Hyaline Casts Few /HPF Urine Mucus Mod /LPF Urine Opiates Screen Neg (NEG) Urine Methadone Screen Neg (NEG) Urine Barbiturates Neg (NEG) Urine Phencyclidine Screen Neg (NEG) Urine Amphetamine/Methamphetamine Neg (NEG) Urine Benzodiazepines Screen Neg (NEG) Urine Cocaine Screen Neg (NEG) Urine Cannabinoids Screen Neg (NEG) Urine Ethyl Alcohol Neg (NEG) White Blood Count 10.8 x10^3/uL (4.0-11.0) 6.5 x10^3/uL (4.0-11.0) Red Blood Count 5.15 x10^6/uL (3.50-5.40) 4.22 x10^6/uL (3.50-5.40) Hemoglobin 15.3 g/dL (12.0-15.5) 12.6 g/dL (12.0-15.5) Hematocrit 45.1 % (36.0-47.0) 37.7 % (36.0-47.0) Mean Corpuscular Volume 88 fL (79-100) 89 fL (79-100) Mean Corpuscular Hemoglobin 30 pg (25-35) 30 pg (25-35) Mean Corpuscular Hemoglobin Concent 34 g/dL (31-37) 33 g/dL (31-37) Red Cell Distribution Width 13.4 % (11.5-14.5) 13.4 % (11.5-14.5) Platelet Count 373 x10^3/uL (140-400) 268 x10^3/uL (140-400) Neutrophils (%) (Auto) 80 % (31-73) 68 % (31-73) Lymphocytes (%) (Auto) 11 % (24-48) 19 % (24-48) Monocytes (%) (Auto) 9 % (0-9) 9 % (0-9) Eosinophils (%) (Auto) 0 % (0-3) 3 % (0-3) Basophils (%) (Auto) 0 % (0-3) 1 % (0-3) Neutrophils # (Auto) 8.6 x10^3uL (1.8-7.7) 4.5 x10^3uL (1.8-7.7) Lymphocytes # (Auto) 1.1 x10^3/uL (1.0-4.8) 1.3 x10^3/uL (1.0-4.8) Monocytes # (Auto) 1.0 x10^3/uL (0.0-1.1) 0.6 x10^3/uL (0.0-1.1) Eosinophils # (Auto) 0.0 x10^3/uL (0.0-0.7) 0.2 x10^3/uL (0.0-0.7) Basophils # (Auto) 0.0 x10^3/uL (0.0-0.2) 0.0 x10^3/uL (0.0-0.2) Prothrombin Time 13.1 SEC (11.7-14.0) Prothromb Time International Ratio 1.1 (0.8-1.1) D-Dimer (Christal) 2.14 ug/mlFEU (0.00-0.50) Sodium Level 141 mmol/L (136-145) 145 mmol/L (136-145) Potassium Level 4.4 mmol/L (3.5-5.1) 3.9 mmol/L (3.5-5.1) Chloride Level 105 mmol/L (98-107) 108 mmol/L (98-107) Carbon Dioxide Level 31 mmol/L (21-32) 27 mmol/L (21-32) Anion Gap 5 (6-14) 10 (6-14) Blood Urea Nitrogen 17 mg/dL (7-20) 16 mg/dL (7-20) Creatinine 1.0 mg/dL (0.6-1.0) 0.8 mg/dL (0.6-1.0) Estimated GFR (Cockcroft-Gault) 52.3 67.7 BUN/Creatinine Ratio 17 (6-20) 20 (6-20) Glucose Level 112 mg/dL (70-99) 86 mg/dL (70-99) Lactic Acid Level 2.1 mmol/L (0.4-2.0) 1.7 mmol/L (0.4-2.0) Calcium Level 10.2 mg/dL (8.5-10.1) 8.6 mg/dL (8.5-10.1) Magnesium Level 2.1 mg/dL (1.8-2.4) Total Bilirubin 0.8 mg/dL (0.2-1.0) 0.5 mg/dL (0.2-1.0) Aspartate Amino Transf (AST/SGOT) 35 U/L (15-37) 29 U/L (15-37) Alanine Aminotransferase (ALT/SGPT) 21 U/L (14-59) 17 U/L (14-59) Alkaline Phosphatase 123 U/L (46-116) 93 U/L (46-116) Creatine Kinase 651 U/L (26-192) Creatine Kinase MB (Mass) 9.4 ng/mL (0.0-3.6) Creatine Kinase MB Relative Index 1.4 % (0-4) Troponin I Quantitative 0.023 ng/mL (0.000-0.055) 0.043 ng/mL (0.000-0.055) NY-Fcj-A-Type Natriuretic Peptide 1210 pg/mL (0-449) Total Protein 7.7 g/dL (6.4-8.2) 5.2 g/dL (6.4-8.2) Albumin 3.6 g/dL (3.4-5.0) 2.5 g/dL (3.4-5.0) Albumin/Globulin Ratio 0.9 (1.0-1.7) 0.9 (1.0-1.7) Thyroid Stimulating Hormone (TSH) 0.858 uIU/mL (0.358-3.74) Erythrocyte Sedimentation Rate 8 (0-25) Vitamin B12 Level 195 pg/mL (247-911) Laboratory Tests Test 08/17/16 16:50 08/18/16 03:10 Lactic Acid Level 1.7 mmol/L (0.4-2.0) White Blood Count 6.5 x10^3/uL (4.0-11.0) Red Blood Count 4.22 x10^6/uL (3.50-5.40) Hemoglobin 12.6 g/dL (12.0-15.5) Hematocrit 37.7 % (36.0-47.0) Mean Corpuscular Volume 89 fL (79-100) Mean Corpuscular Hemoglobin 30 pg (25-35) Mean Corpuscular Hemoglobin Concent 33 g/dL (31-37) Red Cell Distribution Width 13.4 % (11.5-14.5) Platelet Count 268 x10^3/uL (140-400) Neutrophils (%) (Auto) 68 % (31-73) Lymphocytes (%) (Auto) 19 % (24-48) Monocytes (%) (Auto) 9 % (0-9) Eosinophils (%) (Auto) 3 % (0-3) Basophils (%) (Auto) 1 % (0-3) Neutrophils # (Auto) 4.5 x10^3uL (1.8-7.7) Lymphocytes # (Auto) 1.3 x10^3/uL (1.0-4.8) Monocytes # (Auto) 0.6 x10^3/uL (0.0-1.1) Eosinophils # (Auto) 0.2 x10^3/uL (0.0-0.7) Basophils # (Auto) 0.0 x10^3/uL (0.0-0.2) Erythrocyte Sedimentation Rate 8 (0-25) Sodium Level 145 mmol/L (136-145) Potassium Level 3.9 mmol/L (3.5-5.1) Chloride Level 108 mmol/L (98-107) Carbon Dioxide Level 27 mmol/L (21-32) Anion Gap 10 (6-14) Blood Urea Nitrogen 16 mg/dL (7-20) Creatinine 0.8 mg/dL (0.6-1.0) Estimated GFR (Cockcroft-Gault) 67.7 BUN/Creatinine Ratio 20 (6-20) Glucose Level 86 mg/dL (70-99) Calcium Level 8.6 mg/dL (8.5-10.1) Total Bilirubin 0.5 mg/dL (0.2-1.0) Aspartate Amino Transf (AST/SGOT) 29 U/L (15-37) Alanine Aminotransferase (ALT/SGPT) 17 U/L (14-59) Alkaline Phosphatase 93 U/L (46-116) Troponin I Quantitative 0.043 ng/mL (0.000-0.055) Total Protein 5.2 g/dL (6.4-8.2) Albumin 2.5 g/dL (3.4-5.0) Albumin/Globulin Ratio 0.9 (1.0-1.7) Vitamin B12 Level 195 pg/mL (247-911) Medications Current Medications Sodium Chloride 1,000 ml @ 1,000 mls/hr 1X ONCE IV Last administered on 11:17; Start 08/17/16 at 10:45; Stop 08/17/16 at 11:44; Status DC Iohexol (Omnipaque 300 Mg/ml) 60 ml 1X ONCE IV Last administered on 08/17/16 14:31; Start 08/17/16 at 13:15; Stop 08/17/16 at 13:16; Status DC Ondansetron HCl (Zofran) 4 mg PRN Q8HRS PRN IV NAUSEA/VOMITING; Start 08/17/16 at 15:15; Stop 08/17/16 at 16:41; Status DC Ondansetron HCl (Zofran) 4 mg PRN Q6HRS PRN IV NAUSEA/VOMITING; Start 08/17/16 at 16:39; Stop 08/18/16 at 16:38 Sodium Chloride 1,000 ml @ 75 mls/hr 1X ONCE IV Last administered on 18:16; Start 08/17/16 at 16:45; Stop 08/18/16 at 06:04; Status DC Labetalol HCl (Normodyne) 10 mg PRN Q2HR PRN IVP HYPERTENSION, SEE COMMENTS; Start 08/17/16 at 16:45 Aspirin (Ecotrin) 81 mg DAILYWBKFT PO Last administered on 08/18/16 09:05; Start 08/18/16 at 08:00 Levothyroxine Sodium (Synthroid) 100 mcg DAILY07 PO Last administered on 06:12; Start 08/18/16 at 07:00 Metoprolol Tartrate (Lopressor) 25 mg BID PO Last administered on 08/18/16 09: 05; Start 08/17/16 at 21:00 Simvastatin (Zocor) 40 mg QHS PO ; Start 08/17/16 at 21:00; Stop 08/17/16 at 21: 00; Status DC Vitamin D (Vitamin D3) 5,000 unit DAILY PO Last administered on 08/18/16 09:05 ; Start 08/18/16 at 09:00 Enoxaparin Sodium (Lovenox 40mg Syringe) 40 mg Q24H SQ Last administered on 18:16; Start 08/17/16 at 18:00 Cyanocobalamin (Vitamin B-12) 1,000 mcg DAILY IM Last administered on 08/18/16 12:22; Start 08/18/16 at 10:30; Stop 08/20/16 at 09:01 Acetaminophen (Tylenol) 650 mg PRN Q6HRS PRN PO FEVER; Start 08/18/16 at 11:45 Ondansetron HCl (Zofran) 4 mg PRN Q6HRS PRN IV NAUSEA/VOMITING; Start 08/18/16 at 11:45 Morphine Sulfate 2 mg PRN Q2HR PRN IV PAIN; Start 08/18/16 at 11:45 Tramadol HCl (Ultram) 50 mg PRN Q6HRS PRN PO PAIN; Start 08/18/16 at 11:45 Hydralazine HCl (Apresoline) 10 mg PRN Q4HRS PRN IVP ELEVATED BP, SEE COMMENTS ; Start 08/18/16 at 11:45 Docusate Sodium (Colace) 100 mg PRN DAILY PRN PO CONSTIPATION; Start 08/18/16 at 11:45 Active Scripts Active Reported Vitamin D3 (Cholecalciferol (Vitamin D3)) 5,000 Unit Tablet 1 Tab PO DAILY Aspir 81 (Aspirin) 81 Mg Tablet.dr 1 Tab PO DAILY Levothyroxine Sodium 100 Mcg Tablet 1 Tab PO DAILY Metoprolol Tartrate 25 Mg Tablet 1 Tab PO BID Simvastatin 40 Mg Tablet 1 Tab PO QHS Vitals/I & O Vital Sign - Last 24 Hours 08/17/16 08/17/16 08/17/16 08/17/16 13:36 14:37 15:43 17:45 Temp 97.3 97.3 Pulse 101 107 119 Resp 20 20 18 B/P (MAP) 158/84 (108) 159/82 (107) 145/99 (114) Pulse Ox 93 94 96 O2 Delivery Room Air Room Air Room Air Room Air 08/17/16 08/17/16 08/17/16 08/18/16 19:37 20:00 23:00 03:00 Temp 98.2 97.5 97.8 98.2 97.5 97.8 Pulse 103 86 88 Resp 18 18 18 B/P (MAP) 108/66 (80) 120/59 (79) 109/80 (90) Pulse Ox 91 90 O2 Delivery Room Air Room Air Room Air Room Air O2 Flow Rate 93.0 93.0 08/18/16 08/18/16 08/18/16 08/18/16 07:25 07:37 09:05 10:37 Temp 98.5 98.5 98.5 98.5 Pulse 91 91 71 Resp 16 16 B/P (MAP) 138/60 (86) 138/60 125/60 (81) Pulse Ox 92 95 O2 Delivery Room Air Room Air Room Air Intake and Output 08/17/16 08/17/16 08/18/16 15:00 23:00 07:00 Intake Total 1000 ml 220 ml 240 ml Output Total 850 ml Balance 1000 ml 220 ml -610 ml NALLELY WARE MD Aug 18, 2016 13:02
[2016-08-18 14:46] VITALS: BP 133/72
--- NOTE | 2016-08-18 15:04 | PDOC2 ---
NEUROLOGY CONSULT Date of Admission Date of Admission DATE: 08/18/16 TIME: 14:59 Reason for Consult Reason for Consult: Altered mental status Referring Physician Referring Physician: Dr. Kelly PCP: Dr. Hurst Source Source: Caregiver, Chart review, Patient History of Present Illness History of Present Illness The patient is an 89-year-old right-handed female who has had altered mental status increasing over the last few days. However, she has been fairly fully dependent for care from her children for the last several months. They take care of cooking, cleaning, finances, the patient does not drive. Currently the patient is staying with her son but her daughter, with whom I also spoke, wants to take her to her house. There is no history of stroke, seizure, or head injury. The patient does not know why she is here and denies any complaints. Past Medical History Cardiovascular: HTN, Hyperlipidemia CENTRAL NERVOUS SYSTEM: Dementia Endocrine: Hypothyroidism Past Surgical History Past Surgical History: Other (right carotid stent) Family History Family History: CAD Social History Social History , lives with son, no tobacco or alcohol Current Medications Current Medications Current Medications Sodium Chloride 1,000 ml @ 1,000 mls/hr 1X ONCE IV Last administered on 11:17; Start 08/17/16 at 10:45; Stop 08/17/16 at 11:44; Status DC Iohexol (Omnipaque 300 Mg/ml) 60 ml 1X ONCE IV Last administered on 08/17/16 14:31; Start 08/17/16 at 13:15; Stop 08/17/16 at 13:16; Status DC Ondansetron HCl (Zofran) 4 mg PRN Q8HRS PRN IV NAUSEA/VOMITING; Start 08/17/16 at 15:15; Stop 08/17/16 at 16:41; Status DC Ondansetron HCl (Zofran) 4 mg PRN Q6HRS PRN IV NAUSEA/VOMITING; Start 08/17/16 at 16:39; Stop 08/18/16 at 16:38 Sodium Chloride 1,000 ml @ 75 mls/hr 1X ONCE IV Last administered on 18:16; Start 08/17/16 at 16:45; Stop 08/18/16 at 06:04; Status DC Labetalol HCl (Normodyne) 10 mg PRN Q2HR PRN IVP HYPERTENSION, SEE COMMENTS; Start 08/17/16 at 16:45 Aspirin (Ecotrin) 81 mg DAILYWBKFT PO Last administered on 08/18/16 09:05; Start 08/18/16 at 08:00 Levothyroxine Sodium (Synthroid) 100 mcg DAILY07 PO Last administered on 06:12; Start 08/18/16 at 07:00 Metoprolol Tartrate (Lopressor) 25 mg BID PO Last administered on 08/18/16 09: 05; Start 08/17/16 at 21:00 Simvastatin (Zocor) 40 mg QHS PO ; Start 08/17/16 at 21:00; Stop 08/17/16 at 21: 00; Status DC Vitamin D (Vitamin D3) 5,000 unit DAILY PO Last administered on 08/18/16 09:05 ; Start 08/18/16 at 09:00 Enoxaparin Sodium (Lovenox 40mg Syringe) 40 mg Q24H SQ Last administered on 18:16; Start 08/17/16 at 18:00 Cyanocobalamin (Vitamin B-12) 1,000 mcg DAILY IM Last administered on 08/18/16 12:22; Start 08/18/16 at 10:30; Stop 08/20/16 at 09:01 Acetaminophen (Tylenol) 650 mg PRN Q6HRS PRN PO FEVER; Start 08/18/16 at 11:45 Ondansetron HCl (Zofran) 4 mg PRN Q6HRS PRN IV NAUSEA/VOMITING; Start 08/18/16 at 11:45 Morphine Sulfate 2 mg PRN Q2HR PRN IV PAIN; Start 08/18/16 at 11:45 Tramadol HCl (Ultram) 50 mg PRN Q6HRS PRN PO PAIN; Start 08/18/16 at 11:45 Hydralazine HCl (Apresoline) 10 mg PRN Q4HRS PRN IVP ELEVATED BP, SEE COMMENTS ; Start 08/18/16 at 11:45 Docusate Sodium (Colace) 100 mg PRN DAILY PRN PO CONSTIPATION; Start 08/18/16 at 11:45 Active Scripts Active Reported Vitamin D3 (Cholecalciferol (Vitamin D3)) 5,000 Unit Tablet 1 Tab PO DAILY Aspir 81 (Aspirin) 81 Mg Tablet.dr 1 Tab PO DAILY Levothyroxine Sodium 100 Mcg Tablet 1 Tab PO DAILY Metoprolol Tartrate 25 Mg Tablet 1 Tab PO BID Simvastatin 40 Mg Tablet 1 Tab PO QHS Allergies Allergies: Coded Allergies: egg (Verified Allergy, Intermediate, Nausea and Vomiting, 08/17/16) ROS Review of System Patient denies fevers, chills, weight loss, dyspnea, angina, abdominal pain, change in bowels, or dysuria. 14 point review of systems is negative. Physical Exam Physical Examination PHYSICAL EXAMINATION: Vital signs: see above. General appearance is normal and in no acute distress. HEENT: Normocephalic and nontraumatic. Eyes, nose, ears, and throat are unremarkable. Neck is supple. No lymphadenopathy. No bruits are heard over the carotid artery. No crepitus. NEUROLOGICAL EXAMINATION: Mental Status Examination: Alert. Oriented only to person. Pupils are equal round and reactive to light and accommodation. Extraocular movements are intact. Visual field exam shows no defect on the direct confrontation. No motor or sensory deficits on the facial exam. Uvula in the midline and the soft palate elevated symmetrically. No deviation of the tongue to any direction. Gross hearing is normal. Shoulder shrug normal. Muscle tone is normal. Muscle strength is 4/5. Deep tendon reflexes are 2+ all around. Plantar reflex is with flexion response bilaterally. There are bilateral grasp reflexes. [id number]-[id number] test performance is accurate. Alternative movements are accurate. Gait not tested. Sensory exam shows no deficits. No cerebellar signs are elicited. Vitals VITALS Vital Signs Date Time Temp Pulse Resp B/P (MAP) Pulse Ox O2 Delivery O2 Flow Rate FiO2 08/18/16 10:37 98.5 71 16 125/60 (81) 95 Room Air 98.5 08/17/16 20:00 93.0 Labs Labs Laboratory Tests Test 08/17/16 10:30 08/17/16 10:40 08/17/16 16:50 08/18/16 03:10 Urine Collection Type U cath Urine Color Yellow Urine Clarity Clear Urine pH 6.5 Urine Specific [place] 1.020 Urine Protein 30 mg/dL (NEG-TRACE) Urine Glucose (UA) Negative mg/dL (NEG) Urine Ketones (Stick) 15 mg/dL (NEG) Urine Blood Negative (NEG) Urine Nitrite Negative (NEG) Urine Bilirubin Small (NEG) Urine Urobilinogen Dipstick 1.0 mg/dL (0.2 mg/dL) Urine Leukocyte Esterase Negative (NEG) Urine RBC Occ /HPF (0-2) Urine WBC 1-4 /HPF (0-4) Urine Squamous Epithelial Cells Few /LPF Urine Bacteria 0 /HPF (0-FEW) Urine Hyaline Casts Few /HPF Urine Mucus Mod /LPF Urine Opiates Screen Neg (NEG) Urine Methadone Screen Neg (NEG) Urine Barbiturates Neg (NEG) Urine Phencyclidine Screen Neg (NEG) Urine Amphetamine/Methamphetamine Neg (NEG) Urine Benzodiazepines Screen Neg (NEG) Urine Cocaine Screen Neg (NEG) Urine Cannabinoids Screen Neg (NEG) Urine Ethyl Alcohol Neg (NEG) White Blood Count 10.8 x10^3/uL (4.0-11.0) 6.5 x10^3/uL (4.0-11.0) Red Blood Count 5.15 x10^6/uL (3.50-5.40) 4.22 x10^6/uL (3.50-5.40) Hemoglobin 15.3 g/dL (12.0-15.5) 12.6 g/dL (12.0-15.5) Hematocrit 45.1 % (36.0-47.0) 37.7 % (36.0-47.0) Mean Corpuscular Volume 88 fL (79-100) 89 fL (79-100) Mean Corpuscular Hemoglobin 30 pg (25-35) 30 pg (25-35) Mean Corpuscular Hemoglobin Concent 34 g/dL (31-37) 33 g/dL (31-37) Red Cell Distribution Width 13.4 % (11.5-14.5) 13.4 % (11.5-14.5) Platelet Count 373 x10^3/uL (140-400) 268 x10^3/uL (140-400) Neutrophils (%) (Auto) 80 % (31-73) 68 % (31-73) Lymphocytes (%) (Auto) 11 % (24-48) 19 % (24-48) Monocytes (%) (Auto) 9 % (0-9) 9 % (0-9) Eosinophils (%) (Auto) 0 % (0-3) 3 % (0-3) Basophils (%) (Auto) 0 % (0-3) 1 % (0-3) Neutrophils # (Auto) 8.6 x10^3uL (1.8-7.7) 4.5 x10^3uL (1.8-7.7) Lymphocytes # (Auto) 1.1 x10^3/uL (1.0-4.8) 1.3 x10^3/uL (1.0-4.8) Monocytes # (Auto) 1.0 x10^3/uL (0.0-1.1) 0.6 x10^3/uL (0.0-1.1) Eosinophils # (Auto) 0.0 x10^3/uL (0.0-0.7) 0.2 x10^3/uL (0.0-0.7) Basophils # (Auto) 0.0 x10^3/uL (0.0-0.2) 0.0 x10^3/uL (0.0-0.2) Prothrombin Time 13.1 SEC (11.7-14.0) Prothromb Time International Ratio 1.1 (0.8-1.1) D-Dimer (Christal) 2.14 ug/mlFEU (0.00-0.50) Sodium Level 141 mmol/L (136-145) 145 mmol/L (136-145) Potassium Level 4.4 mmol/L (3.5-5.1) 3.9 mmol/L (3.5-5.1) Chloride Level 105 mmol/L (98-107) 108 mmol/L (98-107) Carbon Dioxide Level 31 mmol/L (21-32) 27 mmol/L (21-32) Anion Gap 5 (6-14) 10 (6-14) Blood Urea Nitrogen 17 mg/dL (7-20) 16 mg/dL (7-20) Creatinine 1.0 mg/dL (0.6-1.0) 0.8 mg/dL (0.6-1.0) Estimated GFR (Cockcroft-Gault) 52.3 67.7 BUN/Creatinine Ratio 17 (6-20) 20 (6-20) Glucose Level 112 mg/dL (70-99) 86 mg/dL (70-99) Lactic Acid Level 2.1 mmol/L (0.4-2.0) 1.7 mmol/L (0.4-2.0) Calcium Level 10.2 mg/dL (8.5-10.1) 8.6 mg/dL (8.5-10.1) Magnesium Level 2.1 mg/dL (1.8-2.4) Total Bilirubin 0.8 mg/dL (0.2-1.0) 0.5 mg/dL (0.2-1.0) Aspartate Amino Transf (AST/SGOT) 35 U/L (15-37) 29 U/L (15-37) Alanine Aminotransferase (ALT/SGPT) 21 U/L (14-59) 17 U/L (14-59) Alkaline Phosphatase 123 U/L (46-116) 93 U/L (46-116) Creatine Kinase 651 U/L (26-192) Creatine Kinase MB (Mass) 9.4 ng/mL (0.0-3.6) Creatine Kinase MB Relative Index 1.4 % (0-4) Troponin I Quantitative 0.023 ng/mL (0.000-0.055) 0.043 ng/mL (0.000-0.055) GB-Sgn-D-Type Natriuretic Peptide 1210 pg/mL (0-449) Total Protein 7.7 g/dL (6.4-8.2) 5.2 g/dL (6.4-8.2) Albumin 3.6 g/dL (3.4-5.0) 2.5 g/dL (3.4-5.0) Albumin/Globulin Ratio 0.9 (1.0-1.7) 0.9 (1.0-1.7) Thyroid Stimulating Hormone (TSH) 0.858 uIU/mL (0.358-3.74) Erythrocyte Sedimentation Rate 8 (0-25) Vitamin B12 Level 195 pg/mL (247-911) Laboratory Tests Test 08/17/16 16:50 08/18/16 03:10 Lactic Acid Level 1.7 mmol/L (0.4-2.0) White Blood Count 6.5 x10^3/uL (4.0-11.0) Red Blood Count 4.22 x10^6/uL (3.50-5.40) Hemoglobin 12.6 g/dL (12.0-15.5) Hematocrit 37.7 % (36.0-47.0) Mean Corpuscular Volume 89 fL (79-100) Mean Corpuscular Hemoglobin 30 pg (25-35) Mean Corpuscular Hemoglobin Concent 33 g/dL (31-37) Red Cell Distribution Width 13.4 % (11.5-14.5) Platelet Count 268 x10^3/uL (140-400) Neutrophils (%) (Auto) 68 % (31-73) Lymphocytes (%) (Auto) 19 % (24-48) Monocytes (%) (Auto) 9 % (0-9) Eosinophils (%) (Auto) 3 % (0-3) Basophils (%) (Auto) 1 % (0-3) Neutrophils # (Auto) 4.5 x10^3uL (1.8-7.7) Lymphocytes # (Auto) 1.3 x10^3/uL (1.0-4.8) Monocytes # (Auto) 0.6 x10^3/uL (0.0-1.1) Eosinophils # (Auto) 0.2 x10^3/uL (0.0-0.7) Basophils # (Auto) 0.0 x10^3/uL (0.0-0.2) Erythrocyte Sedimentation Rate 8 (0-25) Sodium Level 145 mmol/L (136-145) Potassium Level 3.9 mmol/L (3.5-5.1) Chloride Level 108 mmol/L (98-107) Carbon Dioxide Level 27 mmol/L (21-32) Anion Gap 10 (6-14) Blood Urea Nitrogen 16 mg/dL (7-20) Creatinine 0.8 mg/dL (0.6-1.0) Estimated GFR (Cockcroft-Gault) 67.7 BUN/Creatinine Ratio 20 (6-20) Glucose Level 86 mg/dL (70-99) Calcium Level 8.6 mg/dL (8.5-10.1) Total Bilirubin 0.5 mg/dL (0.2-1.0) Aspartate Amino Transf (AST/SGOT) 29 U/L (15-37) Alanine Aminotransferase (ALT/SGPT) 17 U/L (14-59) Alkaline Phosphatase 93 U/L (46-116) Troponin I Quantitative 0.043 ng/mL (0.000-0.055) Total Protein 5.2 g/dL (6.4-8.2) Albumin 2.5 g/dL (3.4-5.0) Albumin/Globulin Ratio 0.9 (1.0-1.7) Vitamin B12 Level 195 pg/mL (247-911) Images Images Head CT: The calvarium appears unremarkable. The visualized paranasal sinuses appear unremarkable. There is no subdural or epidural hematoma. There is some underlying atrophy compatible with the patient's age. There is no mass or midline shift. No hemorrhage is seen. A significant change compared to the previous exam is not seen. IMPRESSION: No acute intracranial finding Assessment/Plan Assessment/Plan Impression: Long-standing dementia, worsening. This is most likely Alzheimer's. But she also has B12 deficiency Laboratory studies for other causes of dementia are negative and there is no significant metabolic derangement. Recommendations: B12 injections daily for 3 days and then monthly thereafter Trial of donepezil, side effects discussed Consider long term unit transfer I discussed my findings with the patient and her children. Thank you for letting me help with the patient's care. JESSY LANG MD Aug 18, 2016 15:04
[2016-08-18] MEDS: DONEPEZIL HCL 5 MG TABLET. PO SCH (18:03)
[2016-08-18] MEDS: ENOXAPARIN 40 MG/0.4 ML SYRINGE. SQ SCH (18:04)
[2016-08-18 19:15] VITALS: BP 146/77
[2016-08-19 03:15] VITALS: BP 155/76
[2016-08-19] MEDS: LEVOTHYROXINE 100 MCG TABLET PO SCH (06:14)
[2016-08-19 07:52] VITALS: BP 144/56
[2016-08-19] MEDS: ASPIRIN ENTERIC COATED 81 MG TABLET.DR. PO SCH (07:54)
[2016-08-19] MEDS: CYANOCOBALAMIN (VITAMIN B-12) 1,000 MCG/ML VIAL IM SCH (07:55)
[2016-08-19] MEDS: DONEPEZIL HCL 5 MG TABLET. PO SCH (07:55)
[2016-08-19] MEDS: METOPROLOL TART IMMED RELEASE 25 MG TABLET. PO SCH ×2 (07:55→20:20)
[2016-08-19] MEDS: CHOLECALCIFEROL (VITAMIN D3) 5,000 UNIT CAPSULE PO SCH (07:55)
[2016-08-19 08:05] LABS: BASO % 1 % (0-3); EOS % 6 % (0-3); HEMATOCRIT 39.6 % (36.0-47.0); LYMPH # 1.9 x10^3/uL (1.0-4.8); LYMPH % 28 % (24-48); MEAN CORPUSCULAR HEMOGLOBIN 30 pg (25-35); MEAN CORPUSCULAR HGB CONC 33 g/dL (31-37); MEAN CORPUSCULAR VOLUME 90 fL (79-100); MONO % 11 % (0-9); NEUT % 54 % (31-73); PLATELET COUNT 271 x10^3/uL (140-400); RED BLOOD COUNT 4.42 x10^6/uL (3.50-5.40); RED CELL DISTRIBUTION WIDTH 13.6 % (11.5-14.5); WHITE BLOOD COUNT 6.8 x10^3/uL (4.0-11.0)
[2016-08-19 08:23] LABS: CREATININE 0.8 mg/dL (0.6-1.0); GFR 67.7; POTASSIUM 3.8 mmol/L (3.5-5.1)
--- NOTE | 2016-08-19 10:29 | PDOC ---
PROGRESS NOTES Assessment Problems Medical Problems: (1) Confusion Status: Acute (2) Generalized weakness Status: Acute Long-standing dementia, worsening, Alzheimer's. But she also has B12 deficiency Plan B12 injections daily for 3 days and then monthly thereafter Donepezil [facility]CI unit transfer Discussed with patient's daughter Subjective No complaints Objective Vital Signs Date Time Temp Pulse Resp B/P (MAP) Pulse Ox O2 Delivery O2 Flow Rate FiO2 08/19/16 08:04 Room Air 08/19/16 07:55 75 144/56 08/19/16 07:52 97.5 18 92 97.5 Intake and Output 08/19/16 07:00 Intake Total 560 ml Output Total 1600 ml Balance -1040 ml Intake Oral 560 ml Output Urine Total 1600 ml # Voids 1 # Bowel Movements 2 PHYSICAL EXAM Alert. Oriented only to person. PERRL. EOMI. CN: no focal findings. Muscle tone: normal. Muscle strength: 4/5 DTR: 1+ Plantar reflex: flexor. Also has bilateral grasp reflexes Gait: not examined in bed. Sensory exam: no abnormal findings. No cerebellar signs elicited. Review of Relevant I have reviewed the following items isabella (where applicable) has been applied. Labs Laboratory Tests Test 08/17/16 10:30 08/17/16 10:40 08/17/16 16:50 08/18/16 03:10 Urine Collection Type U cath Urine Color Yellow Urine Clarity Clear Urine pH 6.5 Urine Specific [place] 1.020 Urine Protein 30 mg/dL (NEG-TRACE) Urine Glucose (UA) Negative mg/dL (NEG) Urine Ketones (Stick) 15 mg/dL (NEG) Urine Blood Negative (NEG) Urine Nitrite Negative (NEG) Urine Bilirubin Small (NEG) Urine Urobilinogen Dipstick 1.0 mg/dL (0.2 mg/dL) Urine Leukocyte Esterase Negative (NEG) Urine RBC Occ /HPF (0-2) Urine WBC 1-4 /HPF (0-4) Urine Squamous Epithelial Cells Few /LPF Urine Bacteria 0 /HPF (0-FEW) Urine Hyaline Casts Few /HPF Urine Mucus Mod /LPF Urine Opiates Screen Neg (NEG) Urine Methadone Screen Neg (NEG) Urine Barbiturates Neg (NEG) Urine Phencyclidine Screen Neg (NEG) Urine Amphetamine/Methamphetamine Neg (NEG) Urine Benzodiazepines Screen Neg (NEG) Urine Cocaine Screen Neg (NEG) Urine Cannabinoids Screen Neg (NEG) Urine Ethyl Alcohol Neg (NEG) White Blood Count 10.8 x10^3/uL (4.0-11.0) 6.5 x10^3/uL (4.0-11.0) Red Blood Count 5.15 x10^6/uL (3.50-5.40) 4.22 x10^6/uL (3.50-5.40) Hemoglobin 15.3 g/dL (12.0-15.5) 12.6 g/dL (12.0-15.5) Hematocrit 45.1 % (36.0-47.0) 37.7 % (36.0-47.0) Mean Corpuscular Volume 88 fL (79-100) 89 fL (79-100) Mean Corpuscular Hemoglobin 30 pg (25-35) 30 pg (25-35) Mean Corpuscular Hemoglobin Concent 34 g/dL (31-37) 33 g/dL (31-37) Red Cell Distribution Width 13.4 % (11.5-14.5) 13.4 % (11.5-14.5) Platelet Count 373 x10^3/uL (140-400) 268 x10^3/uL (140-400) Neutrophils (%) (Auto) 80 % (31-73) 68 % (31-73) Lymphocytes (%) (Auto) 11 % (24-48) 19 % (24-48) Monocytes (%) (Auto) 9 % (0-9) 9 % (0-9) Eosinophils (%) (Auto) 0 % (0-3) 3 % (0-3) Basophils (%) (Auto) 0 % (0-3) 1 % (0-3) Neutrophils # (Auto) 8.6 x10^3uL (1.8-7.7) 4.5 x10^3uL (1.8-7.7) Lymphocytes # (Auto) 1.1 x10^3/uL (1.0-4.8) 1.3 x10^3/uL (1.0-4.8) Monocytes # (Auto) 1.0 x10^3/uL (0.0-1.1) 0.6 x10^3/uL (0.0-1.1) Eosinophils # (Auto) 0.0 x10^3/uL (0.0-0.7) 0.2 x10^3/uL (0.0-0.7) Basophils # (Auto) 0.0 x10^3/uL (0.0-0.2) 0.0 x10^3/uL (0.0-0.2) Prothrombin Time 13.1 SEC (11.7-14.0) Prothromb Time International Ratio 1.1 (0.8-1.1) D-Dimer (Christal) 2.14 ug/mlFEU (0.00-0.50) Sodium Level 141 mmol/L (136-145) 145 mmol/L (136-145) Potassium Level 4.4 mmol/L (3.5-5.1) 3.9 mmol/L (3.5-5.1) Chloride Level 105 mmol/L (98-107) 108 mmol/L (98-107) Carbon Dioxide Level 31 mmol/L (21-32) 27 mmol/L (21-32) Anion Gap 5 (6-14) 10 (6-14) Blood Urea Nitrogen 17 mg/dL (7-20) 16 mg/dL (7-20) Creatinine 1.0 mg/dL (0.6-1.0) 0.8 mg/dL (0.6-1.0) Estimated GFR (Cockcroft-Gault) 52.3 67.7 BUN/Creatinine Ratio 17 (6-20) 20 (6-20) Glucose Level 112 mg/dL (70-99) 86 mg/dL (70-99) Lactic Acid Level 2.1 mmol/L (0.4-2.0) 1.7 mmol/L (0.4-2.0) Calcium Level 10.2 mg/dL (8.5-10.1) 8.6 mg/dL (8.5-10.1) Magnesium Level 2.1 mg/dL (1.8-2.4) Total Bilirubin 0.8 mg/dL (0.2-1.0) 0.5 mg/dL (0.2-1.0) Aspartate Amino Transf (AST/SGOT) 35 U/L (15-37) 29 U/L (15-37) Alanine Aminotransferase (ALT/SGPT) 21 U/L (14-59) 17 U/L (14-59) Alkaline Phosphatase 123 U/L (46-116) 93 U/L (46-116) Creatine Kinase 651 U/L (26-192) Creatine Kinase MB (Mass) 9.4 ng/mL (0.0-3.6) Creatine Kinase MB Relative Index 1.4 % (0-4) Troponin I Quantitative 0.023 ng/mL (0.000-0.055) 0.043 ng/mL (0.000-0.055) ED-Nej-T-Type Natriuretic Peptide 1210 pg/mL (0-449) Total Protein 7.7 g/dL (6.4-8.2) 5.2 g/dL (6.4-8.2) Albumin 3.6 g/dL (3.4-5.0) 2.5 g/dL (3.4-5.0) Albumin/Globulin Ratio 0.9 (1.0-1.7) 0.9 (1.0-1.7) Thyroid Stimulating Hormone (TSH) 0.858 uIU/mL (0.358-3.74) Erythrocyte Sedimentation Rate 8 (0-25) Vitamin B12 Level 195 pg/mL (247-911) Test 08/18/16 20:42 08/19/16 07:55 Glucose (Fingerstick) 138 mg/dL (70-99) White Blood Count 6.8 x10^3/uL (4.0-11.0) Red Blood Count 4.42 x10^6/uL (3.50-5.40) Hemoglobin 13.0 g/dL (12.0-15.5) Hematocrit 39.6 % (36.0-47.0) Mean Corpuscular Volume 90 fL (79-100) Mean Corpuscular Hemoglobin 30 pg (25-35) Mean Corpuscular Hemoglobin Concent 33 g/dL (31-37) Red Cell Distribution Width 13.6 % (11.5-14.5) Platelet Count 271 x10^3/uL (140-400) Neutrophils (%) (Auto) 54 % (31-73) Lymphocytes (%) (Auto) 28 % (24-48) Monocytes (%) (Auto) 11 % (0-9) Eosinophils (%) (Auto) 6 % (0-3) Basophils (%) (Auto) 1 % (0-3) Neutrophils # (Auto) 3.7 x10^3uL (1.8-7.7) Lymphocytes # (Auto) 1.9 x10^3/uL (1.0-4.8) Monocytes # (Auto) 0.8 x10^3/uL (0.0-1.1) Eosinophils # (Auto) 0.4 x10^3/uL (0.0-0.7) Basophils # (Auto) 0.0 x10^3/uL (0.0-0.2) Sodium Level 143 mmol/L (136-145) Potassium Level 3.8 mmol/L (3.5-5.1) Chloride Level 108 mmol/L (98-107) Carbon Dioxide Level 27 mmol/L (21-32) Anion Gap 8 (6-14) Blood Urea Nitrogen 12 mg/dL (7-20) Creatinine 0.8 mg/dL (0.6-1.0) Estimated GFR (Cockcroft-Gault) 67.7 Glucose Level 87 mg/dL (70-99) Calcium Level 9.0 mg/dL (8.5-10.1) Laboratory Tests Test 08/18/16 20:42 08/19/16 07:55 Glucose (Fingerstick) 138 mg/dL (70-99) White Blood Count 6.8 x10^3/uL (4.0-11.0) Red Blood Count 4.42 x10^6/uL (3.50-5.40) Hemoglobin 13.0 g/dL (12.0-15.5) Hematocrit 39.6 % (36.0-47.0) Mean Corpuscular Volume 90 fL (79-100) Mean Corpuscular Hemoglobin 30 pg (25-35) Mean Corpuscular Hemoglobin Concent 33 g/dL (31-37) Red Cell Distribution Width 13.6 % (11.5-14.5) Platelet Count 271 x10^3/uL (140-400) Neutrophils (%) (Auto) 54 % (31-73) Lymphocytes (%) (Auto) 28 % (24-48) Monocytes (%) (Auto) 11 % (0-9) Eosinophils (%) (Auto) 6 % (0-3) Basophils (%) (Auto) 1 % (0-3) Neutrophils # (Auto) 3.7 x10^3uL (1.8-7.7) Lymphocytes # (Auto) 1.9 x10^3/uL (1.0-4.8) Monocytes # (Auto) 0.8 x10^3/uL (0.0-1.1) Eosinophils # (Auto) 0.4 x10^3/uL (0.0-0.7) Basophils # (Auto) 0.0 x10^3/uL (0.0-0.2) Sodium Level 143 mmol/L (136-145) Potassium Level 3.8 mmol/L (3.5-5.1) Chloride Level 108 mmol/L (98-107) Carbon Dioxide Level 27 mmol/L (21-32) Anion Gap 8 (6-14) Blood Urea Nitrogen 12 mg/dL (7-20) Creatinine 0.8 mg/dL (0.6-1.0) Estimated GFR (Cockcroft-Gault) 67.7 Glucose Level 87 mg/dL (70-99) Calcium Level 9.0 mg/dL (8.5-10.1) Medications Current Medications Sodium Chloride 1,000 ml @ 1,000 mls/hr 1X ONCE IV Last administered on 11:17; Start 08/17/16 at 10:45; Stop 08/17/16 at 11:44; Status DC Iohexol (Omnipaque 300 Mg/ml) 60 ml 1X ONCE IV Last administered on 08/17/16 14:31; Start 08/17/16 at 13:15; Stop 08/17/16 at 13:16; Status DC Ondansetron HCl (Zofran) 4 mg PRN Q8HRS PRN IV NAUSEA/VOMITING; Start 08/17/16 at 15:15; Stop 08/17/16 at 16:41; Status DC Ondansetron HCl (Zofran) 4 mg PRN Q6HRS PRN IV NAUSEA/VOMITING; Start 08/17/16 at 16:39; Stop 08/18/16 at 16:38; Status DC Sodium Chloride 1,000 ml @ 75 mls/hr 1X ONCE IV Last administered on 18:16; Start 08/17/16 at 16:45; Stop 08/18/16 at 06:04; Status DC Labetalol HCl (Normodyne) 10 mg PRN Q2HR PRN IVP HYPERTENSION, SEE COMMENTS; Start 08/17/16 at 16:45 Aspirin (Ecotrin) 81 mg DAILYWBKFT PO Last administered on 08/19/16 07:54; Start 08/18/16 at 08:00 Levothyroxine Sodium (Synthroid) 100 mcg DAILY07 PO Last administered on 06:14; Start 08/18/16 at 07:00 Metoprolol Tartrate (Lopressor) 25 mg BID PO Last administered on 08/19/16 07: 55; Start 08/17/16 at 21:00 Simvastatin (Zocor) 40 mg QHS PO ; Start 08/17/16 at 21:00; Stop 08/17/16 at 21: 00; Status DC Vitamin D (Vitamin D3) 5,000 unit DAILY PO Last administered on 08/19/16 07:55 ; Start 08/18/16 at 09:00 Enoxaparin Sodium (Lovenox 40mg Syringe) 40 mg Q24H SQ Last administered on 08/18 18:04; Start 08/17/16 at 18:00 Cyanocobalamin (Vitamin B-12) 1,000 mcg DAILY IM Last administered on 08/19/16 07:55; Start 08/18/16 at 10:30; Stop 08/20/16 at 09:01 Acetaminophen (Tylenol) 650 mg PRN Q6HRS PRN PO FEVER Last administered on 06:14; Start 08/18/16 at 11:45 Ondansetron HCl (Zofran) 4 mg PRN Q6HRS PRN IV NAUSEA/VOMITING; Start 08/18/16 at 11:45 Morphine Sulfate 2 mg PRN Q2HR PRN IV PAIN; Start 08/18/16 at 11:45 Tramadol HCl (Ultram) 50 mg PRN Q6HRS PRN PO PAIN Last administered on 20:59; Start 08/18/16 at 11:45 Hydralazine HCl (Apresoline) 10 mg PRN Q4HRS PRN IVP ELEVATED BP, SEE COMMENTS ; Start 08/18/16 at 11:45 Docusate Sodium (Colace) 100 mg PRN DAILY PRN PO CONSTIPATION; Start 08/18/16 at 11:45 Donepezil HCl (Aricept) 5 mg DAILY PO Last administered on 08/19/16t 07:55; Start 08/18/16 at 16:00; Stop 09/16/16 at 15:59 Active Scripts Active Reported Vitamin D3 (Cholecalciferol (Vitamin D3)) 5,000 Unit Tablet 1 Tab PO DAILY Aspir 81 (Aspirin) 81 Mg Tablet.dr 1 Tab PO DAILY Levothyroxine Sodium 100 Mcg Tablet 1 Tab PO DAILY Metoprolol Tartrate 25 Mg Tablet 1 Tab PO BID Simvastatin 40 Mg Tablet 1 Tab PO QHS Vitals/I & O Vital Sign - Last 24 Hours 08/18/16 08/18/16 08/18/16 08/18/16 10:37 14:46 19:15 20:00 Temp 98.5 98.8 98.2 98.5 98.8 98.2 Pulse 71 82 96 Resp 16 16 18 B/P (MAP) 125/60 (81) 133/72 (92) 146/77 (100) Pulse Ox 95 95 92 O2 Delivery Room Air Room Air Room Air Room Air 08/18/16 08/18/16 08/19/16 08/19/16 20:59 21:59 03:15 07:52 Temp 98.3 97.5 98.3 97.5 Pulse 96 81 75 Resp 18 18 18 B/P (MAP) 146/77 155/76 (102) 144/56 (85) Pulse Ox 93 92 92 O2 Delivery Room Air Room Air Room Air 08/19/16 08/19/16 07:55 08:04 Pulse 75 B/P (MAP) 144/56 O2 Delivery Room Air Intake and Output 08/18/16 08/18/16 08/19/16 15:00 23:00 07:00 Intake Total 440 ml 120 ml Output Total 450 ml 400 ml 750 ml Balance -450 ml 40 ml -630 ml JESSY LANG MD Aug 19, 2016 10:29
[2016-08-19 10:55] VITALS: BP 155/52
--- NOTE | 2016-08-19 12:41 | CONS ---
DATE OF CONSULTATION: 08/18/2016 CHIEF COMPLAINT: Urinary retention. HISTORY OF PRESENT ILLNESS: This is an 89-year-old female that was admitted to the Emergency Room due to increased confusion and changes in mental status. Urology was asked to see the patient. She evidently had urinary retention on admission. A Alberto catheter was placed. Unfortunately, they did not record the volume of urine obtained. According to the daughter, the patient voids satisfactorily at home. Has had no bladder issues other than some mild incontinence from time to time. There is no history of recurrent urinary tract infections. PAST MEDICAL HISTORY: The patient has a history of hypothyroidism and progressive dementia. PAST SURGICAL HISTORY: The patient has had back surgery, carotid artery stent. SOCIAL HISTORY: An 89-year-old female that lives with her children. REVIEW OF SYSTEMS: A 14-point review of systems performed, most significant as per HPI. PHYSICAL EXAMINATION: GENERAL DESCRIPTION: An 89-year-old female, appears to be pleasant. She is not a good historian. Her daughter has provided most of the information. ABDOMEN: Soft, nontender. Negative for flank pain to palpation bilaterally. No palpable abdominal masses. No suprapubic tenderness. GENITALIA: The patient has indwelling Alberto catheter, draining thalia colored urine. EXTREMITIES: Negative for cyanosis or edema. LABORATORY DATA: The patient's white blood cell count 6.5, hemoglobin 12.6, hematocrit 37.7, platelet count was adequate. The patient's electrolytes essentially normal. Her BUN 16, creatinine 0.8. Protein and albumin are low. Urinalysis on admission, occasional red blood cells, 1-4 white blood cells, no significant bacteria. X-RAY STUDIES: No x-rays pertinent to system. IMPRESSION: 1. Urinary retention. 2. Changes in mental status -- improved. SUGGESTIONS: 1. According to the daughter, the patient really had no voiding problems at home. ____ only when she had this increase in confusion and change in mental status. I would suggest the Alberto catheter be removed prior to discharge and give her a voiding trial. If she achieved her baseline, then I think she ____ fine at home without a Alberto catheter. That was discussed with the daughter and she agrees as well. Thank you for the opportunity to participate in evaluation of this patient. ELOISA MCCOY DO DR: Maritza JOB#: [id number] / [id number]
--- NOTE | 2016-08-19 12:54 | PDOC ---
PROGRESS NOTES Chief Complaint Chief Complaint 1. Acute transient encephalopathy, likely sec to dementia undiagnosed 2. Hypothyroidism with TSH at goal 3. Dyslipidemia on statin 4. HTN, on BB controlled 5. MIld hypercalcemia s/p IVF bolus at ER 6. Elevated BNP 7. Dysphagia - on chopped diet at home 8. Elevated lactate 9. vitb12 deficiency 10. mild malnutrition 11. urinary retention PLAn: fu with neuro, uro dysphagia 3 diet with swallow eval vitb12 IMX1, as per neuro , need 3 times then monthly IM. pt doesnot want IM, plz double check with pt when dc to see if can change to po. aricept added as per neuro PTOT SW for snf cont home meds keep esteban for now dvt ppx discussed with family History of Present Illness History of Present Illness obviously mild to moderate dementia, knows it is in hosp, but cannot tell me the name, year, month, day, home address pt denies dementia pt feels ok urinary retention overnight Vitals Vitals Vital Signs Date Time Temp Pulse Resp B/P (MAP) Pulse Ox O2 Delivery O2 Flow Rate FiO2 08/19/16 10:55 98.5 61 16 155/52 (86) 94 Room Air 98.5 Physical Exam Physical Exam aaox1-2, to person, place, not name of hosp General: Alert, Cooperative, No acute distress, Other (smiles, orieted only to self) Heart: Regular rate, Normal S1 Lungs: Clear Abdomen: Normal bowel sounds, Soft, No tenderness, No hepatosplenomegaly, No masses Extremities: No clubbing, No cyanosis, Normal pulses, No tenderness/swelling, Other (bl feet mild edema) Skin: No rashes, No breakdown, No significant lesion, Other (senile skin turgor ) Labs LABS Laboratory Tests Test 08/18/16 20:42 08/19/16 07:55 Glucose (Fingerstick) 138 mg/dL (70-99) White Blood Count 6.8 x10^3/uL (4.0-11.0) Red Blood Count 4.42 x10^6/uL (3.50-5.40) Hemoglobin 13.0 g/dL (12.0-15.5) Hematocrit 39.6 % (36.0-47.0) Mean Corpuscular Volume 90 fL (79-100) Mean Corpuscular Hemoglobin 30 pg (25-35) Mean Corpuscular Hemoglobin Concent 33 g/dL (31-37) Red Cell Distribution Width 13.6 % (11.5-14.5) Platelet Count 271 x10^3/uL (140-400) Neutrophils (%) (Auto) 54 % (31-73) Lymphocytes (%) (Auto) 28 % (24-48) Monocytes (%) (Auto) 11 % (0-9) Eosinophils (%) (Auto) 6 % (0-3) Basophils (%) (Auto) 1 % (0-3) Neutrophils # (Auto) 3.7 x10^3uL (1.8-7.7) Lymphocytes # (Auto) 1.9 x10^3/uL (1.0-4.8) Monocytes # (Auto) 0.8 x10^3/uL (0.0-1.1) Eosinophils # (Auto) 0.4 x10^3/uL (0.0-0.7) Basophils # (Auto) 0.0 x10^3/uL (0.0-0.2) Sodium Level 143 mmol/L (136-145) Potassium Level 3.8 mmol/L (3.5-5.1) Chloride Level 108 mmol/L (98-107) Carbon Dioxide Level 27 mmol/L (21-32) Anion Gap 8 (6-14) Blood Urea Nitrogen 12 mg/dL (7-20) Creatinine 0.8 mg/dL (0.6-1.0) Estimated GFR (Cockcroft-Gault) 67.7 Glucose Level 87 mg/dL (70-99) Calcium Level 9.0 mg/dL (8.5-10.1) Review of Systems Review of Systems no fever, chills, sob or chest pain Assessment and Plan Assessmemt and Plan Problems Medical Problems: (1) Confusion Status: Acute (2) Generalized weakness Status: Acute Problems: Comment Review of Relevant I have reviewed the following items isabella (where applicable) has been applied. Labs Laboratory Tests Test 08/17/16 16:50 08/18/16 03:10 08/18/16 20:42 08/19/16 07:55 Lactic Acid Level 1.7 mmol/L (0.4-2.0) White Blood Count 6.5 x10^3/uL (4.0-11.0) 6.8 x10^3/uL (4.0-11.0) Red Blood Count 4.22 x10^6/uL (3.50-5.40) 4.42 x10^6/uL (3.50-5.40) Hemoglobin 12.6 g/dL (12.0-15.5) 13.0 g/dL (12.0-15.5) Hematocrit 37.7 % (36.0-47.0) 39.6 % (36.0-47.0) Mean Corpuscular Volume 89 fL (79-100) 90 fL (79-100) Mean Corpuscular Hemoglobin 30 pg (25-35) 30 pg (25-35) Mean Corpuscular Hemoglobin Concent 33 g/dL (31-37) 33 g/dL (31-37) Red Cell Distribution Width 13.4 % (11.5-14.5) 13.6 % (11.5-14.5) Platelet Count 268 x10^3/uL (140-400) 271 x10^3/uL (140-400) Neutrophils (%) (Auto) 68 % (31-73) 54 % (31-73) Lymphocytes (%) (Auto) 19 % (24-48) 28 % (24-48) Monocytes (%) (Auto) 9 % (0-9) 11 % (0-9) Eosinophils (%) (Auto) 3 % (0-3) 6 % (0-3) Basophils (%) (Auto) 1 % (0-3) 1 % (0-3) Neutrophils # (Auto) 4.5 x10^3uL (1.8-7.7) 3.7 x10^3uL (1.8-7.7) Lymphocytes # (Auto) 1.3 x10^3/uL (1.0-4.8) 1.9 x10^3/uL (1.0-4.8) Monocytes # (Auto) 0.6 x10^3/uL (0.0-1.1) 0.8 x10^3/uL (0.0-1.1) Eosinophils # (Auto) 0.2 x10^3/uL (0.0-0.7) 0.4 x10^3/uL (0.0-0.7) Basophils # (Auto) 0.0 x10^3/uL (0.0-0.2) 0.0 x10^3/uL (0.0-0.2) Erythrocyte Sedimentation Rate 8 (0-25) Sodium Level 145 mmol/L (136-145) 143 mmol/L (136-145) Potassium Level 3.9 mmol/L (3.5-5.1) 3.8 mmol/L (3.5-5.1) Chloride Level 108 mmol/L (98-107) 108 mmol/L (98-107) Carbon Dioxide Level 27 mmol/L (21-32) 27 mmol/L (21-32) Anion Gap 10 (6-14) 8 (6-14) Blood Urea Nitrogen 16 mg/dL (7-20) 12 mg/dL (7-20) Creatinine 0.8 mg/dL (0.6-1.0) 0.8 mg/dL (0.6-1.0) Estimated GFR (Cockcroft-Gault) 67.7 67.7 BUN/Creatinine Ratio 20 (6-20) Glucose Level 86 mg/dL (70-99) 87 mg/dL (70-99) Calcium Level 8.6 mg/dL (8.5-10.1) 9.0 mg/dL (8.5-10.1) Total Bilirubin 0.5 mg/dL (0.2-1.0) Aspartate Amino Transf (AST/SGOT) 29 U/L (15-37) Alanine Aminotransferase (ALT/SGPT) 17 U/L (14-59) Alkaline Phosphatase 93 U/L (46-116) Troponin I Quantitative 0.043 ng/mL (0.000-0.055) Total Protein 5.2 g/dL (6.4-8.2) Albumin 2.5 g/dL (3.4-5.0) Albumin/Globulin Ratio 0.9 (1.0-1.7) Vitamin B12 Level 195 pg/mL (247-911) Glucose (Fingerstick) 138 mg/dL (70-99) Laboratory Tests Test 08/18/16 20:42 08/19/16 07:55 Glucose (Fingerstick) 138 mg/dL (70-99) White Blood Count 6.8 x10^3/uL (4.0-11.0) Red Blood Count 4.42 x10^6/uL (3.50-5.40) Hemoglobin 13.0 g/dL (12.0-15.5) Hematocrit 39.6 % (36.0-47.0) Mean Corpuscular Volume 90 fL (79-100) Mean Corpuscular Hemoglobin 30 pg (25-35) Mean Corpuscular Hemoglobin Concent 33 g/dL (31-37) Red Cell Distribution Width 13.6 % (11.5-14.5) Platelet Count 271 x10^3/uL (140-400) Neutrophils (%) (Auto) 54 % (31-73) Lymphocytes (%) (Auto) 28 % (24-48) Monocytes (%) (Auto) 11 % (0-9) Eosinophils (%) (Auto) 6 % (0-3) Basophils (%) (Auto) 1 % (0-3) Neutrophils # (Auto) 3.7 x10^3uL (1.8-7.7) Lymphocytes # (Auto) 1.9 x10^3/uL (1.0-4.8) Monocytes # (Auto) 0.8 x10^3/uL (0.0-1.1) Eosinophils # (Auto) 0.4 x10^3/uL (0.0-0.7) Basophils # (Auto) 0.0 x10^3/uL (0.0-0.2) Sodium Level 143 mmol/L (136-145) Potassium Level 3.8 mmol/L (3.5-5.1) Chloride Level 108 mmol/L (98-107) Carbon Dioxide Level 27 mmol/L (21-32) Anion Gap 8 (6-14) Blood Urea Nitrogen 12 mg/dL (7-20) Creatinine 0.8 mg/dL (0.6-1.0) Estimated GFR (Cockcroft-Gault) 67.7 Glucose Level 87 mg/dL (70-99) Calcium Level 9.0 mg/dL (8.5-10.1) Medications Current Medications Sodium Chloride 1,000 ml @ 1,000 mls/hr 1X ONCE IV Last administered on t 11:17; Start 08/17/16 at 10:45; Stop 08/17/16 at 11:44; Status DC Iohexol (Omnipaque 300 Mg/ml) 60 ml 1X ONCE IV Last administered on 08/17/16 14:31; Start 08/17/16 at 13:15; Stop 08/17/16 at 13:16; Status DC Ondansetron HCl (Zofran) 4 mg PRN Q8HRS PRN IV NAUSEA/VOMITING; Start 08/17/16 at 15:15; Stop 08/17/16 at 16:41; Status DC Ondansetron HCl (Zofran) 4 mg PRN Q6HRS PRN IV NAUSEA/VOMITING; Start 08/17/16 at 16:39; Stop 08/18/16 at 16:38; Status DC Sodium Chloride 1,000 ml @ 75 mls/hr 1X ONCE IV Last administered on 18:16; Start 08/17/16 at 16:45; Stop 08/18/16 at 06:04; Status DC Labetalol HCl (Normodyne) 10 mg PRN Q2HR PRN IVP HYPERTENSION, SEE COMMENTS; Start 08/17/16 at 16:45 Aspirin (Ecotrin) 81 mg DAILYWBKFT PO Last administered on 08/19/16 07:54; Start 08/18/16 at 08:00 Levothyroxine Sodium (Synthroid) 100 mcg DAILY07 PO Last administered on 06:14; Start 08/18/16 at 07:00 Metoprolol Tartrate (Lopressor) 25 mg BID PO Last administered on 08/19/16 07: 55; Start 08/17/16 at 21:00 Simvastatin (Zocor) 40 mg QHS PO ; Start 08/17/16 at 21:00; Stop 08/17/16 at 21: 00; Status DC Vitamin D (Vitamin D3) 5,000 unit DAILY PO Last administered on 08/19/16 07:55 ; Start 08/18/16 at 09:00 Enoxaparin Sodium (Lovenox 40mg Syringe) 40 mg Q24H SQ Last administered on 08/18 18:04; Start 08/17/16 at 18:00 Cyanocobalamin (Vitamin B-12) 1,000 mcg DAILY IM Last administered on 08/19/16 07:55; Start 08/18/16 at 10:30; Stop 08/20/16 at 09:01 Acetaminophen (Tylenol) 650 mg PRN Q6HRS PRN PO FEVER Last administered on 06:14; Start 08/18/16 at 11:45 Ondansetron HCl (Zofran) 4 mg PRN Q6HRS PRN IV NAUSEA/VOMITING Last administered on 08/19/16 11:25; Start 08/18/16 at 11:45 Morphine Sulfate 2 mg PRN Q2HR PRN IV PAIN; Start 08/18/16 at 11:45 Tramadol HCl (Ultram) 50 mg PRN Q6HRS PRN PO PAIN Last administered on 20:59; Start 08/18/16 at 11:45 Hydralazine HCl (Apresoline) 10 mg PRN Q4HRS PRN IVP ELEVATED BP, SEE COMMENTS ; Start 08/18/16 at 11:45 Docusate Sodium (Colace) 100 mg PRN DAILY PRN PO CONSTIPATION; Start 08/18/16 at 11:45 Donepezil HCl (Aricept) 5 mg DAILY PO Last administered on 08/19/16 07:55; Start 08/18/16 at 16:00; Stop 09/16/16 at 15:59 Active Scripts Active Reported Vitamin D3 (Cholecalciferol (Vitamin D3)) 5,000 Unit Tablet 1 Tab PO DAILY Aspir 81 (Aspirin) 81 Mg Tablet.dr 1 Tab PO DAILY Levothyroxine Sodium 100 Mcg Tablet 1 Tab PO DAILY Metoprolol Tartrate 25 Mg Tablet 1 Tab PO BID Simvastatin 40 Mg Tablet 1 Tab PO QHS Vitals/I & O Vital Sign - Last 24 Hours 08/18/16 08/18/16 08/18/16 08/18/16 14:46 19:15 20:00 20:59 Temp 98.8 98.2 98.8 98.2 Pulse 82 96 96 Resp 16 18 B/P (MAP) 133/72 (92) 146/77 (100) 146/77 Pulse Ox 95 92 O2 Delivery Room Air Room Air Room Air 08/18/16 08/19/16 08/19/16 08/19/16 21:59 03:15 07:52 07:55 Temp 98.3 97.5 98.3 97.5 Pulse 81 75 75 Resp 18 18 18 B/P (MAP) 155/76 (102) 144/56 (85) 144/56 Pulse Ox 93 92 92 O2 Delivery Room Air Room Air Room Air 08/19/16 08/19/16 08:04 10:55 Temp 98.5 98.5 Pulse 61 Resp 16 B/P (MAP) 155/52 (86) Pulse Ox 94 O2 Delivery Room Air Room Air Intake and Output 08/18/16 08/18/16 08/19/16 15:00 23:00 07:00 Intake Total 440 ml 120 ml Output Total 450 ml 400 ml 750 ml Balance -450 ml 40 ml -630 ml Nutrition Consultation Dietary Evaluation: Recommendations by RD: Add supplement feedings Comments: Ensure bid Expected Outcomes/Goals: to meet > 75% est nutr needs Malnutrition Findings: Body Fat Depletion (Non Severe: Mild Depletion Weight Status: Appropriate NALLELY WARE MD Aug 19, 2016 12:54
[2016-08-19 14:47] VITALS: BP 144/49
[2016-08-19] MEDS: ENOXAPARIN 40 MG/0.4 ML SYRINGE. SQ SCH (18:22)
[2016-08-19 19:54] VITALS: BP 152/71
[2016-08-19 23:07] VITALS: BP 144/67
[2016-08-20] MEDS: LEVOTHYROXINE 100 MCG TABLET PO SCH (05:25)
[2016-08-20 07:42] VITALS: BP 139/70
[2016-08-20] MEDS: ASPIRIN ENTERIC COATED 81 MG TABLET.DR. PO SCH (07:59)
[2016-08-20] MEDS: DONEPEZIL HCL 5 MG TABLET. PO SCH (07:59)
[2016-08-20] MEDS: METOPROLOL TART IMMED RELEASE 25 MG TABLET. PO SCH (07:59)
[2016-08-20] MEDS: CHOLECALCIFEROL (VITAMIN D3) 5,000 UNIT CAPSULE PO SCH (07:59)
[2016-08-20] MEDS: CYANOCOBALAMIN (VITAMIN B-12) 1,000 MCG/ML VIAL IM SCH (08:00)
[2016-08-20 11:09] VITALS: BP 118/61
--- NOTE | 2016-08-20 19:33 | DS ---
DATE OF DISCHARGE: 08/20/2016 ADMISSION DIAGNOSES: Generalized weakness and confusion and probable metabolic encephalopathy. DISCHARGE DIAGNOSIS: Resolving metabolic encephalopathy. HOSPITAL COURSE: The patient is a pleasant 89-year-old female who presented with metabolic encephalopathy with confusion and some mild dehydration. We suspect that she may have had a UTI, but really we did not find it. We did give her some empiric IV antibiotics and fluids. She got better over the last 3 days. We plan to discharge. The patient was seen and examined this morning. DISPOSITION: Home. ACTIVITY: As tolerated. DIET: Low sodium. MEDICATIONS: Please see the MRAD. TOTAL TIME ON DISCHARGE: 36 minutes. ADAMARIS ELLISON DO DR: JEANNE/conchis JOB#: [id number] / [id number]
== END 2016-08-20 14:25 | disposition home or self-care (01) | DRG 71 ==
LOC: ER 10:18 → 6 SOUTH 13:54
PROVIDERS: ADMIT Internal Medicine; ATTEND Internal Medicine
DX: G93.41 Metabolic encephalopathy (principal); E44.1 Mild protein-calorie malnutrition; G30.9 Alzheimer's disease, unspecified; F02.80 Dementia in other diseases classified elsewhere, unspecified severity, without behavioral disturbance, psychotic disturbance, mood disturbance, and anxiety; E03.9 Hypothyroidism, unspecified; E53.8 Deficiency of other specified B group vitamins; E78.00 Pure hypercholesterolemia, unspecified; E78.5 Hyperlipidemia, unspecified; I10 Essential (primary) hypertension; E86.0 Dehydration; E83.52 Hypercalcemia; R13.10 Dysphagia, unspecified; N39.498 Other specified urinary incontinence; R33.9 Retention of urine, unspecified; Z91.012 Allergy to eggs; Z79.899 Other long term (current) drug therapy; Z82.49 Family history of ischemic heart disease and other diseases of the circulatory system; Z68.23 Body mass index [BMI] 23.0-23.9, adult; Z79.2 Long term (current) use of antibiotics
CPT/HCPCS: 36415; 70450; 71010; 71275; 80048; 80053; 81001; 82553; 82607; 82962; 83605; 83735; 83880; 84443; 84484; 85027; 85379; 85610; 85651; 93005; 93925; G0481; J1650; J2405; J3420; J7030; Q9967; 92526; 92610; 97116

== ENCOUNTER 2017-03-28 09:10 | Emergency (ER) | payer MEDICARE ==
[2017-03-28] MEDS ORDERED: 0.9 % SODIUM CHLORIDE 10 ML DISP.SYRIN. IV (10:15)
[2017-03-28 10:21] LABS: BILIRUBIN,URINE NEGATIVE (NEG); CLARITY,URINE CLEAR; COLOR,URINE YELLOW; GLUCOSE,URINE NEGATIVE (NEG); NITRITE,URINE NEGATIVE (NEG); PROTEIN,URINE NEGATIVE (NEG-TRACE)
[2017-03-28] MEDS: IV NORMAL SALINE 1000ML BAG 1,000 ML IV (10:53)
[2017-03-28 10:57] LABS: ADD MAN DIFF? NO
[2017-03-28 11:01] LABS: BASO % 0 % (0-3); EOS # 0.2 x10^3/uL (0.0-0.7); EOS % 2 % (0-3); HEMATOCRIT 44.6 % (36.0-47.0); HEMOGLOBIN 14.5 g/dL (12.0-15.5); LYMPH # 1.7 x10^3/uL (1.0-4.8); LYMPH % 19 % (24-48); MEAN CORPUSCULAR HEMOGLOBIN 29 pg (25-35); MEAN CORPUSCULAR HGB CONC 33 g/dL (31-37); MEAN CORPUSCULAR VOLUME 89 fL (79-100); MONO # 0.8 x10^3/uL (0.0-1.1); MONO % 9 % (0-9); NEUT # 6.3 x10^3uL (1.8-7.7); NEUT % 69 % (31-73); PLATELET COUNT 409 x10^3/uL (140-400); RED BLOOD COUNT 5.02 x10^6/uL (3.50-5.40); RED CELL DISTRIBUTION WIDTH 13.4 % (11.5-14.5); WHITE BLOOD COUNT 9.1 x10^3/uL (4.0-11.0)
[2017-03-28 11:11] LABS: BACTERIA,URINE 0 /HPF (0-FEW); RBC,URINE 0 /HPF (0-2); WBC,URINE 0 /HPF (0-4)
[2017-03-28 11:21] LABS: ANION GAP 7 (6-14); BLOOD UREA NITROGEN 15 mg/dL (7-20); CALCIUM 9.9 mg/dL (8.5-10.1); CARBON DIOXIDE 32 mmol/L (21-32); CHLORIDE 103 mmol/L (98-107); CREATININE 0.8 mg/dL (0.6-1.0); GFR 67.5; GLUCOSE 104 mg/dL (70-99); SODIUM 142 mmol/L (136-145)
[2017-03-28 11:28] LABS: ALBUMIN 3.2 g/dL (3.4-5.0); ALK PHOS 114 U/L (46-116); ALT (SGPT) 15 U/L (14-59); AST (SGOT) 14 U/L (15-37); DIRECT BILIRUBIN 0.2 mg/dL (0.0-0.2); LIPASE 76 U/L (73-393); TOTAL BILIRUBIN 0.5 mg/dL (0.2-1.0); TOTAL PROTEIN 7.2 g/dL (6.4-8.2)
== END 2017-03-28 12:51 | disposition home or self-care (01) ==
LOC: ER 09:10
DX: K59.00 Constipation, unspecified (principal); G30.9 Alzheimer's disease, unspecified; F02.80 Dementia in other diseases classified elsewhere, unspecified severity, without behavioral disturbance, psychotic disturbance, mood disturbance, and anxiety; E78.00 Pure hypercholesterolemia, unspecified; E03.9 Hypothyroidism, unspecified; I10 Essential (primary) hypertension; Z91.012 Allergy to eggs
CPT/HCPCS: 36415; 74176; 80048; 80076; 81001; 83690; 85025; 96360; 96361; 99285-25; J7030